=== PATIENT | female | born 1985 | race African-American/Black ===

== ENCOUNTER 2018-04-17 10:41 | Emergency (ER) | payer SELFPAY ==
[2018-04-17 10:50] VITALS: BP 116/70
--- NOTE | 2018-04-17 11:04 | ER Document Report ---
ED Medical Screen (RME) - General Chief Complaint: Lower Abdominal Pain Stated Complaint: PELVIC PAIN Time Seen by Provider: 04/17/18 11:01 Mode of Arrival: Ambulatory Information source: Patient Notes: 32-year-old female 2 para 2, history of endometriosis, last menstrual period March 20 (not entirely normal, episode of bleeding followed by spotting). Patient presents to the emergency room with right lower quadrant/right pelvic discomfort for the past few days. She has had some nausea without vomiting, diarrhea or constipation. She last ate this morning (only a small amount). She denies vaginal discharge. Past medical history, borderline diabetes No known disease Medicines: None Past surgical history: Laparoscopy in the past for similar pain TRAVEL OUTSIDE OF THE [place] IN LAST 30 DAYS: No - Related Data Allergies/Adverse Reactions: No Known Allergies Allergy (Verified 04/17/18 11:02) Past Medical History - Social History Chew tobacco use (# tins/day): No Frequency of alcohol use: None Drug Abuse: None Renal/ Medical History: Denies: Hx Peritoneal Dialysis Physical Exam - Vital signs Vitals: Temp Pulse Resp BP Pulse Ox 99.0 F 75 16 116/70 97 04/17/18 10:48 04/17/18 10:48 04/17/18 10:48 04/17/18 10:48 04/17/18 10:48 Course - Vital Signs Vital signs: Temp Pulse Resp BP Pulse Ox 99.0 F 75 16 116/70 97 04/17/18 10:48 04/17/18 10:48 04/17/18 10:48 04/17/18 10:48 04/17/18 10:48 Doctor's Discharge - Discharge Referrals: KD MURPHY PA [Primary Care Provider] - Follow up as needed
[2018-04-17 11:31] LABS: ABSOLUTE BASOPHILS # (AUTO) 0.1 10^3/uL (0.0-0.2); ABSOLUTE EOSINOPHILS # (AUTO) 0.2 10^3/uL (0.0-0.6); ABSOLUTE LYMPHOCYTES (AUTO) 3.5 10^3/uL (0.5-4.7); ABSOLUTE MONOCYTES (AUTO) 0.3 10^3/uL (0.1-1.4); ABSOLUTE NEUT (AUTO) 4.1 10^3/uL (1.7-8.2); BASOPHILS % (AUTO) 0.7 % (0-2); EOSINOPHILS % (AUTO) 2.7 % (0-6); HEMATOCRIT 39.9 % (36.0-47.0); HEMOGLOBIN 13.3 g/dL (12.0-15.5); LYMPHOCYTES % (AUTO) 43.1 % (13-45); MEAN CORPUSCULAR HEMOGLOBIN 27.3 pg (27.0-33.4); MEAN CORPUSCULAR HGB CONC 33.5 g/dL (32.0-36.0); MEAN CORPUSCULAR VOLUME 81 fl (80-97); MONOCYTES % (AUTO) 4.1 % (3-13); PLATELET COUNT 298 10^3/uL (150-450); RED CELL DISTRIBUTION WIDTH 14.7 % (11.5-14.0); SEGMENTED NEUTROPHILS % (AUTO) 49.4 % (42-78); TOTAL CELLS COUNTED % (AUTO) 100 %; WHITE BLOOD COUNT 8.2 10^3/uL (4.0-10.5)
[2018-04-17 11:42] LABS: APPEARANCE,URINE SLIGHTLY-CLOUDY; BILIRUBIN,URINE NEGATIVE (NEGATIVE); COLOR,URINE YELLOW; GLUCOSE, URINE NEGATIVE (NEGATIVE); KETONES,URINE NEGATIVE (NEGATIVE); LEUKOCYTE ESTERASE,URINE TRACE (NEGATIVE); NITRITE,URINE NEGATIVE (NEGATIVE); PROTEIN,URINE NEGATIVE (NEGATIVE); URINE SPECIFIC GRAVITY 1.027
[2018-04-17 11:52] LABS: ALANINE AMINOTRANSFERASE 25 U/L (9-52); ALBUMIN 4.4 g/dL (3.5-5.0); ALKALINE PHOSPHATASE 63 U/L (38-126); ANION GAP 12 (5-19); ASPARTATE AMINO TRANSFERASE 22 U/L (14-36); BILIRUBIN,DIRECT 0.3 mg/dL (0.0-0.4); BILIRUBIN,TOTAL 1.3 mg/dL (0.2-1.3); BLOOD UREA NITROGEN 8 mg/dL (7-20); CALCIUM 9.5 mg/dL (8.4-10.2); CARBON DIOXIDE 26 mmol/L (22-30); CHLORIDE 106 mmol/L (98-107); GLUCOSE 93 mg/dL (75-110); POTASSIUM 3.6 mmol/L (3.6-5.0); SODIUM 144.1 mmol/L (137-145); TOTAL PROTEIN 7.8 g/dL (6.3-8.2)
[2018-04-17] MEDS ORDERED: IBUPROFEN 600 MG TABLET PO ONE (12:52)
[2018-04-17] MEDS ORDERED: KETOROLAC TROMETHAMINE INJ/PF 30 MG/1 ML SDV IM ONE (12:53)
--- NOTE | 2018-04-17 13:00 | ER Document Report ---
ED GI/ - General Chief Complaint: Lower Abdominal Pain Stated Complaint: PELVIC PAIN Time Seen by Provider: 04/17/18 11:01 Mode of Arrival: Ambulatory Information source: Patient Notes: 32-year-old female presents to ED for complaint of right pelvic pain. She states she has a history of endometriosis. Last pins menstrual period was March 20. She has already had a test which is negative. Her white counts are negative and her chemistries are negative. TRAVEL OUTSIDE OF THE [place] IN LAST 30 DAYS: No - HPI Patient complains to provider of: Pelvic pain Onset: Other - Several months minimally Timing/Duration: Intermittent Quality of pain: Cramping, Sharp Severity at maximum: Moderate Severity in ED: Moderate Pain Level: 4 Location: Pelvis - right Vaginal bleeding (Compared to normal period): Spotting LMP: march 20 Associated symptoms: Other - right pelvic pain Exacerbated by: Denies Relieved by: Denies Similar symptoms previously: Yes Recently seen / treated by doctor: No - Related Data Allergies/Adverse Reactions: No Known Allergies Allergy (Verified 04/17/18 11:02) Past Medical History - General Information source: Patient - Social History Smoking Status: Never Smoker Cigarette use (# per day): No Chew tobacco use (# tins/day): No Smoking Education Provided: No Frequency of alcohol use: None Drug Abuse: None Family History: Reviewed & Not Pertinent Patient has suicidal ideation: No Patient has homicidal ideation: No - Past Medical History Cardiac Medical History: Reports: None Pulmonary Medical History: Reports: None EENT Medical History: Reports: None Neurological Medical History: Reports: None Endocrine Medical History: Reports: Hx Diabetes Mellitus Type 2 Renal/ Medical History: Reports: Other - endometriosis Malignancy Medical History: Reports: None GI Medical History: Reports: None Musculoskeletal Medical History: Reports None Skin Medical History: Reports None Psychiatric Medical History: Reports: None Traumatic Medical History: Reports: None Infectious Medical History: Reports: None Surgical Hx: Negative Past Surgical History: Reports: None - Immunizations Immunizations up to date: Yes Review of Systems - Review of Systems Constitutional: No symptoms reported EENT: No symptoms reported Cardiovascular: No symptoms reported Respiratory: No symptoms reported Gastrointestinal: No symptoms reported Genitourinary: No symptoms reported Female Genitourinary: Other - pelvic Musculoskeletal: No symptoms reported Skin: No symptoms reported Hematologic/Lymphatic: No symptoms reported Neurological/Psychological: No symptoms reported -: Yes All other systems reviewed and negative Physical Exam - Vital signs Vitals: Temp Pulse Resp BP Pulse Ox 99.0 F 75 16 116/70 97 04/17/18 10:48 04/17/18 10:48 04/17/18 10:48 04/17/18 10:48 04/17/18 10:48 Interpretation: Normal - General General appearance: Appears well, Alert - HEENT Head: Normocephalic, Atraumatic Eyes: Normal Pupils: PERRL - Respiratory Respiratory status: No respiratory distress Chest status: Nontender Breath sounds: Normal Chest palpation: Normal - Cardiovascular Rhythm: Regular Heart sounds: Normal auscultation Murmur: No - Abdominal Inspection: Normal Distension: No distension Bowel sounds: Normal Tenderness: Nontender Organomegaly: No organomegaly - Genitourinary External exam: Normal Speculum exam: Cervix closed Vaginal bleeding: None Bimanuel exam: Adnexal tenderness. No: Cervical motion tender, Bladder/ Urethral tender, Adnexal mass, Uterus enlarged - Back Back: Normal, Nontender - Extremities General upper extremity: Normal inspection, Nontender, Normal color, Normal ROM , Normal temperature General lower extremity: Normal inspection, Nontender, Normal color, Normal ROM , Normal temperature, Normal weight bearing. No: Kenzie's sign - Neurological Neuro grossly intact: Yes Cognition: Normal Orientation: AAOx4 [place] Coma Scale Eye Opening: Spontaneous [place] Coma Scale Verbal: Oriented [place] Coma Scale Motor: Obeys Commands [place] Coma Scale Total: 15 Speech: Normal Motor strength normal: LUE, RUE, LLE, RLE Sensory: Normal - Psychological Associated symptoms: Normal affect, Normal mood - Skin Skin Temperature: Warm Skin Moisture: Dry Skin Color: Normal Course - Re-evaluation Re-evalutation: 04/17/18 20:58 Labs and ultrasound discussed with patient. Written reports of labs and ultrasound given the patient to follow-up with her primary doctor. Patient was treated with Flagyl in the emergency room for her bacterial vaginosis and discharged home with a prescription for Flagyl. Patient verbalized understanding and agreement with treatment plan. - Vital Signs Vital signs: Temp Pulse Resp BP Pulse Ox 99.0 F 75 16 116/70 97 04/17/18 10:48 04/17/18 10:48 04/17/18 10:48 04/17/18 10:48 04/17/18 10:48 - Laboratory Result Diagrams: 04/17/18 11:10 04/17/18 11:10 Laboratory results interpreted by me: 04/17/18 04/17/18 11:10 11:15 RDW 14.7 H Urine Urobilinogen 2.0 H Ur Leukocyte Esterase TRACE H - Diagnostic Test Radiology reviewed: Image reviewed, Reports reviewed Discharge - Discharge Clinical Impression: Pelvic pain, Bacterial vaginosis Condition: Stable Disposition: HOME, SELF-CARE Additional Instructions: Pelvic Pain There are many causes of pain in the pelvic area. The cause could be the tubes, ovaries, uterus, intestines, appendix, pelvic muscles and connective tissue, or the urinary tract. The cause of your pelvic pain is not clear. However, it seems safe to treat you outside the hospital. If the pain sounds like a temporary problem, we sometimes wait to see if it goes away. Other patients may need additional tests, such as pelvic ultrasound or cultures. Conditions may change. Call us or come back for reexamination if any problems occur, such as: (1) Pain that becomes more severe, steady, or becomes concentrated in one specific area. Also, pain that is more severe with movement or coughing. (2) Vomiting that persists or becomes more frequent. (3) Blood in the vomitus, urine, or bowel movements. Blood in the stool may have a tarry or black appearance. (4) Shaking chills or fever greater than 100 degrees. (5) The abdomen becomes more distended or swollen. (6) Bowel movements cease. (7) Heavy vaginal bleeding. VAGINOSIS, BACTERIAL: Your exam shows you have bacterial vaginosis. This condition is due to an overgrowth of bacteria in the vagina. Symptoms may include vaginal itching or pain, a smelly discharge, and sometimes burning with urination. Normally this is not transmitted by sexual contact. Vaginosis can be treated with oral or topical antibiotics. Metronidazole ( Flagyl) pills are usually effective. Topical vaginal creams include Cleocin and Metro-Gel. You should avoid sexual contact until your symptoms are all better. Call the doctor if you develop pelvic pain, fever, or problems with urination, or if you don't improve as expected. METRONIDAZOLE: Metronidazole (Flagyl) has been prescribed. This medication is used to kill a type of bacteria called anaerobes, and protozoan parasites such as trichomonas and Giardia. Flagyl often causes a metallic taste in the mouth and mild nausea. Do not use alcohol in any form with Flagyl (including alcohol in medication elixirs). Flagyl interacts with alcohol to cause flushing, palpitations, headache, stomach cramps, and vomiting. Do not use Flagyl if you are taking Antabuse (disulfiram). Call the doctor at once if you develop rash, shortness of breath, itching, or lightheadedness. FOLLOW-UP CARE: If you have been referred to a physician for follow-up care, call the physician s office for an appointment as you were instructed or within the next two days. If you experience worsening or a significant change in your symptoms, notify the physician immediately or return to the Emergency Department at any time for re-evaluation. Prescriptions: Metronidazole [Flagyl 500 mg Tablet] 500 mg PO BID #14 tablet Forms: Return to Work Referrals: KD MURPHY PA [NO LOCAL MD] - Follow up as needed
[2018-04-17 13:38] LABS: YEAST (WET MOUNT) NO YEAST SEEN
[2018-04-17 13:39] LABS: BACTERIA (WET MOUNT) 4+ BACTERIA SEEN; EPITHELIALS (WET MOUNT) 4+ EPITHELIALS SEEN; RBCS (WET MOUNT) RARE RBCS SEEN; WBCS (WET MOUNT) 4+ WBCS SEEN
[2018-04-17 13:41] LABS: T.VAGINALIS (WET MOUNT) COULD NOT PERFORM
--- NOTE | 2018-04-17 13:46 | RADIOLOGY REPORT (SQ) ---
EXAM DESCRIPTION: U/S NON-OB PELVIS TV W/O DOP COMPLETED DATE/TIME: 04/17/2018 1:36 pm REASON FOR STUDY: right pelvic pain COMPARISON: None. TECHNIQUE: Dynamic and static grayscale images acquired of the pelvis via transvaginal approach and recorded on PACS. Additional selected color Doppler and spectral images recorded. LIMITATIONS: None. FINDINGS: UTERUS: Contour normal. No mass. ENDOMETRIAL STRIPE: No focal or generalized thickening. No masses. CERVIX: No nabothian cysts. RIGHT OVARY AND DOPPLER: Normal size. No worrisome masses. Normal arterial vascular flow without evid ence for torsion. LEFT OVARY AND DOPPLER: Normal size. No worrisome masses. Normal arterial vascular flow without evide nce for torsion. FREE FLUID: Tiny amount of free fluid is identified in the posterior cul-de-sac OTHER: No other significant finding. MEASUREMENTS: UTERUS: 8.4 x 6.2 x 3.1 cm ENDOMETRIAL STRIPE: 5.9 mm RIGHT OVARY: 2.8 x 2.5 x 3.2 cm LEFT OVARY: 2.5 x 1.9 x 2.1 cm IMPRESSION: No significant pelvic abnormalities were identified. Findings as noted above TECHNICAL DOCUMENTATION: JOB ID: [id number] [employer]- All Rights Reserved Rev Reading location - IP/workstation name: [email or web address]
[2018-04-17 15:00] LABS: CHLAM PCR NOT DETECTED (NOT DETECT); GON PCR NOT DETECTED (NOT DETECT)
[2018-04-17] MEDS ORDERED: METRONIDAZOLE 500 MG TABLET PO ONE (15:13)
== END 2018-04-17 15:50 | disposition home or self-care (01) ==
LOC: ER 10:41
DX: N76.0 Acute vaginitis (principal); B96.89 Other specified bacterial agents as the cause of diseases classified elsewhere; R10.30 Lower abdominal pain, unspecified; R10.2 Pelvic and perineal pain; E11.9 Type 2 diabetes mellitus without complications
CPT/HCPCS: 99284; 96372; 36415; 87210; 84702; 85025; 80053; 81001; 87491; 87591; 76830; J1885

== ENCOUNTER 2018-12-25 12:05 | Emergency (ER) | payer OTHER ==
--- NOTE | 2018-12-25 12:41 | ER Document Report ---
ED Medical Screen (RME) - General Chief Complaint: Vaginal Discharge Stated Complaint: VAGINAL DISCHARGE Time Seen by Provider: 12/25/18 12:37 Mode of Arrival: Ambulatory Notes: Patient presents emergency department with complaints of vaginal swelling with some white discharge since Monday. Patient reports it started after she utilized Preparation H. Denies other symptoms such as fever vomiting diarrhea. Reports history of pneumonia for which she was on antibiotics but she did not finish the antibiotics. She does not remember what she was taking. I have greeted and performed a rapid initial assessment of this patient. A comprehensive ED assessment and evaluation of the patient, analysis of test results and completion of the medical decision making process will be conducted by additional ED providers. TRAVEL OUTSIDE OF THE [place] IN LAST 30 DAYS: No - Related Data Allergies/Adverse Reactions: No Known Allergies Allergy (Verified 12/25/18 12:15) Past Medical History Endocrine Medical History: Reports: Hx Diabetes Mellitus Type 2 Renal/ Medical History: Denies: Hx Peritoneal Dialysis - Immunizations Immunizations up to date: Yes Physical Exam - Vital signs Vitals: Temp Pulse Resp BP Pulse Ox 98.4 F 72 16 109/64 100 12/25/18 12:27 12/25/18 12:27 12/25/18 12:27 12/25/18 12:27 12/25/18 12:27 Course - Vital Signs Vital signs: Temp Pulse Resp BP Pulse Ox 98.4 F 72 16 109/64 100 12/25/18 12:27 12/25/18 12:27 12/25/18 12:27 12/25/18 12:27 12/25/18 12:27
[2018-12-25 13:13] LABS: APPEARANCE,URINE CLOUDY; BILIRUBIN,URINE NEGATIVE (NEGATIVE); COLOR,URINE AMBER; GLUCOSE, URINE NEGATIVE (NEGATIVE); KETONES,URINE NEGATIVE (NEGATIVE); LEUKOCYTE ESTERASE,URINE LARGE (NEGATIVE); NITRITE,URINE NEGATIVE (NEGATIVE); PROTEIN,URINE 30 mg/dL (NEGATIVE); URINE SPECIFIC GRAVITY 1.028
[2018-12-25 15:49] LABS: BACTERIA (WET MOUNT) 4+ BACTERIA SEEN; EPITHELIALS (WET MOUNT) 4+ EPITHELIALS SEEN; T.VAGINALIS (WET MOUNT) NO TRICHOMONAS SEEN; WBCS (WET MOUNT) FEW WBCS SEEN; YEAST (WET MOUNT) YEAST SEEN
[2018-12-25] MEDS ORDERED: FLUCONAZOLE 100 MG TABLET PO ONE (16:19)
[2018-12-25] MEDS ORDERED: CEFTRIAXONE INJ 250 MG VIAL IM ONE (16:19)
[2018-12-25] MEDS ORDERED: AZITHROMYCIN 250 MG TABLET PO ONE (16:19)
--- NOTE | 2018-12-25 16:28 | ER Document Report ---
ED General - General Chief Complaint: Vaginal Discharge Stated Complaint: VAGINAL DISCHARGE Time Seen by Provider: 12/25/18 12:37 Primary Care Provider: OSMAN SHORE [Primary Care Provider] - Follow up as needed Mode of Arrival: Ambulatory Notes: Patient is a 33-year-old female presents to the emergency department for vaginal swelling and discharge. Patient states she recently finished a course of antibiotics for pneumonia. States she has noted some itching, swelling to her vaginal area over the last couple of days. Patient denies using any [id number] treatments. Patient does admit to multiple partners with unprotected sex. Patient's denying any abdominal pain, vomiting, fevers. Past medical history: Diabetes Medications: Metformin Allergies: None TRAVEL OUTSIDE OF THE [place] IN LAST 30 DAYS: No - Related Data Allergies/Adverse Reactions: No Known Allergies Allergy (Verified 12/25/18 12:15) Past Medical History - General Information source: Patient - Social History Smoking Status: Former Smoker Family History: Reviewed & Not Pertinent Patient has suicidal ideation: No Patient has homicidal ideation: No Endocrine Medical History: Reports: Hx Diabetes Mellitus Type 2 Renal/ Medical History: Denies: Hx Peritoneal Dialysis - Immunizations Immunizations up to date: Yes Review of Systems - Review of Systems Constitutional: See HPI EENT: No symptoms reported Cardiovascular: No symptoms reported Respiratory: No symptoms reported Gastrointestinal: See HPI Genitourinary: See HPI Female Genitourinary: See HPI Musculoskeletal: No symptoms reported Skin: No symptoms reported Hematologic/Lymphatic: No symptoms reported Neurological/Psychological: No symptoms reported Physical Exam - Vital signs Vitals: Temp Pulse Resp BP Pulse Ox 98.4 F 72 16 109/64 100 12/25/18 12:27 12/25/18 12:27 12/25/18 12:27 12/25/18 12:27 12/25/18 12:27 - Notes Notes: GENERAL: Alert, interacts well. No acute distress. HEAD: Normocephalic, atraumatic. EYES: Pupils equal, round, and reactive to light. Extraocular movements intact. ENT: Oral mucosa moist, tongue midline. NECK: Full range of motion. Supple. Trachea midline. LUNGS: Clear to auscultation bilaterally, no wheezes, rales, or rhonchi. No respiratory distress. HEART: Regular rate and rhythm. No murmur ABDOMEN: Soft, non-tender. Non-distended. Bowel sounds present in all 4 quadrants. EXTREMITIES: Moves all 4 extremities spontaneously. No edema, normal radial and dorsalis pedis pulses bilaterally. No cyanosis. BACK: no cervical, thoracic, lumbar midline tenderness. No saddle anesthesia, normal distal neurovascular exam. NEUROLOGICAL: Alert and oriented x3. Normal speech. cranial nerves II through XII grossly intact PSYCH: Normal affect, normal mood. SKIN: Warm, dry, normal turgor. No rashes or lesions noted. Pelvic: [employer] Cathleen PCT, thick white discharge noted in cul-de-sac, positive cervical motion tenderness noted, negative bilateral adnexal tenderness noted. Course - Re-evaluation Re-evalutation: 12/25/18 16:31 Patient's urine appears to be a dirty catch, 45 squamous cells noted. UTI sent for culture. Patient's denying dysuria. Patient's wet mount shows 4+ bacteria, few WBCs, plus yeast. Patient's gonorrhea and Chlamydia testing is pending. Due to patient's wet mount results and cervical motion tenderness will treat for PID. Patient continues without any abdominal pain or cramping. Patient is hemodynamically stable, stable for discharge. - Vital Signs Vital signs: Temp Pulse Resp BP Pulse Ox 98.4 F 72 16 109/64 100 12/25/18 12:27 12/25/18 12:27 12/25/18 12:27 12/25/18 12:27 12/25/18 12:27 - Laboratory Laboratory results interpreted by me: 12/25/18 12:44 Urine Protein 30 H Urine Urobilinogen 2.0 H Ur Leukocyte Esterase LARGE H Discharge - Discharge Clinical Impression: Pelvic inflammatory disease, Yeast vaginitis Condition: Stable Disposition: HOME, SELF-CARE Instructions: Pelvic Inflammatory Disease ([facility]), Vaginal Yeast Infection ([facility]) Additional Instructions: As we have discussed you have been seen and treated in the emergency department for pelvic inflammatory disease. Please take antibiotics for the full 14-day course. Also as we discussed you have been seen for yeast vaginitis. Please make sure you take one Diflucan pill on day 7 of your antibiotic course and then another Diflucan pill on day 14 of your antibiotic course. Please also make sure you follow-up with your primary care provider for continued care. Please return to the emergency room should you have any other concerning symptoms. Prescriptions: Doxycycline Hyclate 100 mg PO BID 14 Days capsule Fluconazole [Diflucan] 150 mg PO ONCE PRN #2 tablet PRN Reason: Metronidazole [Flagyl 500 mg Tablet] 500 mg PO BID 14 Days tablet Forms: Return to Work Referrals: [facility] [Primary Care Provider] - Follow up as needed [facility] [Provider Group] - Follow up as needed
[2018-12-25] MEDS ORDERED: LIDOCAINE 1% INJ-PF (10 MG/ML) 30 ML SDV ONE (16:32)
[2018-12-25 17:08] LABS: CHLAM PCR NOT DETECTED (NOT DETECT); GON PCR NOT DETECTED (NOT DETECT)
[2018-12-25 17:28] VITALS: BP 112/71
== END 2018-12-25 17:31 | disposition home or self-care (01) ==
LOC: ER 12:05
DX: N73.9 Female pelvic inflammatory disease, unspecified (principal); B37.3 Candidiasis of vulva and vagina; E11.9 Type 2 diabetes mellitus without complications
CPT/HCPCS: 99283; 96372; 87086; 87210; 81025; 87088; 81001; 87491; 87591; J3490; J0696

== ENCOUNTER 2019-03-11 17:48 | Emergency (ER) | payer OTHER ==
[2019-03-11] MEDS ORDERED: NORMAL SALINE 1000 ML 1,000 ML IV ONE (18:06)
[2019-03-11] MEDS ORDERED: ONDANSETRON HCL INJ/PF 4 MG/2 ML SDV IV ONE (18:06)
[2019-03-11] MEDS ORDERED: KETOROLAC TROMETHAMINE INJ/PF 30 MG/1 ML SDV IV ONE (18:06)
[2019-03-11] MEDS ORDERED: MORPHINE SULFATE 10 MG/ML INJ IV ONE (18:06)
--- NOTE | 2019-03-11 18:11 | ER Document Report ---
ED Medical Screen (RME) - General Chief Complaint: Abdominal Pain Stated Complaint: RIGHT LOWER ABDOMINAL PAIN Time Seen by Provider: 03/11/19 18:02 TRAVEL OUTSIDE OF THE [place] IN LAST 30 DAYS: No - HPI Notes: 03/11/19 18:09 Patient is a 33-year-old female no significant past medical history who presents complaining of sudden onset right flank pain that radiates around into her abdomen with associated nausea and vomiting that began prior to arrival. Her pain has been waxing and waning in intensity. Patient states that she has not had pain like this before. Denies OJEDA, fever, neck pain, URI, CP, SOB, dysuria, or rash. I have treated and performed a rapid initial assessment of this patient. A comprehensive ED assessment and evaluation of the patient, analysis of test results and completion of medical decision making process will be conducted by additional ED providers. PHYSICAL EXAMINATION: GENERAL: no acute resp distress. A&Ox4. Answers questions appropriately. LUNGS: Breath sounds clear to auscultation bilaterally and equal. No wheezes rales or rhonchi. HEART: Regular rate and rhythm without murmurs, rubs, gallops. ABDOMEN: Soft, nondistended abdomen. No guarding, no rebound. Normal bowel sounds present. No CVA tenderness bilaterally. + mild Rt abd tenderness (cannot elicit thorough abd exam w/o bed, however). - Related Data Allergies/Adverse Reactions: No Known Allergies Allergy (Verified 12/25/18 12:15) Past Medical History - Social History Frequency of alcohol use: None Drug Abuse: None Endocrine Medical History: Reports: Hx Diabetes Mellitus Type 2 Renal/ Medical History: Denies: Hx Peritoneal Dialysis - Immunizations Immunizations up to date: Yes Physical Exam - Vital signs Vitals: Temp Pulse Resp BP Pulse Ox 99.4 F 88 18 127/104 H 100 03/11/19 17:54 03/11/19 17:54 03/11/19 17:54 03/11/19 17:54 03/11/19 17:54 Course - Vital Signs Vital signs: Temp Pulse Resp BP Pulse Ox 99.4 F 88 18 127/104 H 100 03/11/19 17:54 03/11/19 17:54 03/11/19 17:54 03/11/19 17:54 03/11/19 17:54
[2019-03-11 18:57] LABS: ABSOLUTE BASOPHILS # (AUTO) 0.1 10^3/uL (0.0-0.2); ABSOLUTE EOSINOPHILS # (AUTO) 0.5 10^3/uL (0.0-0.6); ABSOLUTE LYMPHOCYTES (AUTO) 3.9 10^3/uL (0.5-4.7); ABSOLUTE MONOCYTES (AUTO) 0.5 10^3/uL (0.1-1.4); ABSOLUTE NEUT (AUTO) 5.5 10^3/uL (1.7-8.2); BASOPHILS % (AUTO) 0.8 % (0-2); EOSINOPHILS % (AUTO) 4.9 % (0-6); HEMATOCRIT 39.6 % (36.0-47.0); HEMOGLOBIN 13.4 g/dL (12.0-15.5); MEAN CORPUSCULAR HEMOGLOBIN 28.5 pg (27.0-33.4); MEAN CORPUSCULAR HGB CONC 33.8 g/dL (32.0-36.0); MEAN CORPUSCULAR VOLUME 85 fl (80-97); MONOCYTES % (AUTO) 4.7 % (3-13); PLATELET COUNT 303 10^3/uL (150-450); RED BLOOD COUNT 4.69 10^6/uL (3.72-5.28); RED CELL DISTRIBUTION WIDTH 14.1 % (11.5-14.0); SEGMENTED NEUTROPHILS % (AUTO) 52.6 % (42-78); TOTAL CELLS COUNTED % (AUTO) 100 %; WHITE BLOOD COUNT 10.5 10^3/uL (4.0-10.5)
[2019-03-11 19:07] LABS: APPEARANCE,URINE CLEAR; BILIRUBIN,URINE NEGATIVE (NEGATIVE); COLOR,URINE YELLOW; GLUCOSE, URINE NEGATIVE (NEGATIVE); KETONES,URINE NEGATIVE (NEGATIVE); LEUKOCYTE ESTERASE,URINE NEGATIVE (NEGATIVE); NITRITE,URINE NEGATIVE (NEGATIVE); PROTEIN,URINE 30 mg/dL (NEGATIVE); UROBILINOGEN,URINE NEGATIVE mg/dL (<2.0)
[2019-03-11 19:17] LABS: ALANINE AMINOTRANSFERASE 19 U/L (9-52); ALBUMIN 4.2 g/dL (3.5-5.0); ALKALINE PHOSPHATASE 70 U/L (38-126); ANION GAP 8 (5-19); ASPARTATE AMINO TRANSFERASE 24 U/L (14-36); BILIRUBIN,DIRECT 0.2 mg/dL (0.0-0.4); BILIRUBIN,TOTAL 0.4 mg/dL (0.2-1.3); BLOOD UREA NITROGEN 14 mg/dL (7-20); CALCIUM 9.4 mg/dL (8.4-10.2); CARBON DIOXIDE 21 mmol/L (22-30); CHLORIDE 107 mmol/L (98-107); GLUCOSE 96 mg/dL (75-110); LIPASE 107.5 U/L (23-300); POTASSIUM 4.7 mmol/L (3.6-5.0); SODIUM 136.2 mmol/L (137-145); TOTAL PROTEIN 7.4 g/dL (6.3-8.2)
--- NOTE | 2019-03-11 19:57 | ER Document Report ---
ED General - General Chief Complaint: Abdominal Pain Stated Complaint: RIGHT LOWER ABDOMINAL PAIN Time Seen by Provider: 03/11/19 18:02 Primary Care Provider: [facility] [Provider Group] - Follow up in 3-5 days [facility] [Primary Care Provider] - Follow up in 3-5 days Notes: Patient is a 33 year old female that presents to the emergency department for chief complaint of abdominal pain. Patient states she started having right back pain while she was working out at the gym, and developed nausea and had one episode of vomiting. The pain then started to wrap around towards her right lower quadrant and pelvis so she decided come to the emergency department. She states her pain is much improved since being treated in triage, describes it as a mild ache, and a 2 out of 10 at this time. She denies any abnormal vaginal bleeding or discharge, denies having any dysuria, hematuria, diarrhea, constipa tion chest pain or shortness of breath. Denies any recent fevers, chills or night sweats. She denies any numbness, weakness or tingling in her extremities as well. Past Medical History: Denies chronic medical conditions Past Surgical History: Laparoscopy Social History: Denies tobacco, alcohol or drug use. Family History: Reviewed and noncontributory for presenting illness Allergies: Reviewed, see documented allergy list. REVIEW OF SYSTEMS: Other than noted above, the 12 point review of systems was reviewed with the patient and were negative, all pertinent findings are included in the HPI. PHYSICAL EXAMINATION: Vital signs reviewed, nursing noted reviewed. GENERAL: Well-appearing, well-nourished and in no acute distress. HEAD: Atraumatic, normocephalic. EYES: Eyes appear normal, extraocular movements intact, sclera anicteric, conjunctiva are normal. ENT: nares patent, oropharynx clear without exudates. Moist mucous membranes. NECK: Normal range of motion, supple without lymphadenopathy LUNGS: Breath sounds clear to auscultation bilaterally and equal. No wheezes rales or rhonchi. HEART: Regular rate and rhythm without murmurs ABDOMEN: Soft, mild right-sided abdominal pain with palpation, mainly lower, normoactive bowel sounds. No rebound, guarding, or rigidity. No masses appreciated. EXTREMITIES: Nontender, good range of motion, no pitting or edema. NEUROLOGICAL: No focal neurological deficits. Moves all extremities spontaneously Motor and sensory grossly intact on exam. PSYCH: Normal mood, normal affect. SKIN: Warm, Dry, normal turgor, no rashes or lesions noted on exposed skin TRAVEL OUTSIDE OF THE [place] IN LAST 30 DAYS: No - Related Data Allergies/Adverse Reactions: No Known Allergies Allergy (Verified 12/25/18 12:15) Past Medical History - Social History Smoking Status: Unknown if Ever Smoked Frequency of alcohol use: None Drug Abuse: None Family History: Reviewed & Not Pertinent Patient has suicidal ideation: No Patient has homicidal ideation: No Endocrine Medical History: Reports: Hx Diabetes Mellitus Type 2 Renal/ Medical History: Denies: Hx Peritoneal Dialysis - Immunizations Immunizations up to date: Yes Physical Exam - Vital signs Vitals: Temp Pulse Resp BP Pulse Ox 99.4 F 88 18 127/104 H 100 03/11/19 17:54 03/11/19 17:54 03/11/19 17:54 03/11/19 17:54 03/11/19 17:54 Course - Re-evaluation Re-evalutation: Patient seen and examined vital signs reviewed. Laboratory data and/or imaging were ordered as appropriate for the patient's presenting symptoms and complaint, with consideration of any critical or life threatening conditions that may be associated with their obtained history and exam as noted above. Patient was treated with IV fluids, pain medication, and Zofran for nausea Results were reviewed when available and demonstrated unremarkable work-up including negative CT imaging for acute findings, upon my review it did appear to be a right-sided ovarian cyst, which potentially could be causing some of the patient's pain, versus muscle skeletal injury while the patient was working out. Her blood work was otherwise unremarkable The patient was re-evaluated and was improved, pain seemed to be more controlled Evaluation was most consistent with abdominal pain, nonspecific, possible ovarian cyst causing the nature of her pain, patient states she had a prior history of possible endometriosis, but was not sure of the diagnosis, she is advised to follow-up with [facility]. Results were discussed with the patient at this point, after careful consideration I feel that that patient can be discharged from the emergency department, the patient was educated treatments and reasons to return to the emergency department based on their presumed diagnosis as noted above, they were advised to followup with a primary care physician in 2-3 days. Patient was agreeable to plan of care. *Note is created using voice recognition software and may contain spelling, syntax or grammatical errors. Laboratory 03/11/19 03/11/19 03/11/19 18:45 18:45 18:45 WBC 10.5 RBC 4.69 Hgb 13.4 Hct 39.6 MCV 85 MCH 28.5 MCHC 33.8 RDW 14.1 H Plt Count 303 Seg Neutrophils % 52.6 Lymphocytes % 37.0 Monocytes % 4.7 Eosinophils % 4.9 Basophils % 0.8 Absolute Neutrophils 5.5 Absolute Lymphocytes 3.9 Absolute Monocytes 0.5 Absolute Eosinophils 0.5 Absolute Basophils 0.1 Sodium 136.2 L Potassium 4.7 Chloride 107 Carbon Dioxide 21 L Anion Gap 8 BUN 14 Creatinine 0.54 Est GFR ( Amer) > 60 Est GFR (Non-Af Amer) > 60 Glucose 96 Calcium 9.4 Total Bilirubin 0.4 Direct Bilirubin 0.2 Neonat Total Bilirubin Not Reportable Neonat Direct Bilirubin Not Reportable Neonat Indirect Bili Not Reportable AST 24 ALT 19 Alkaline Phosphatase 70 Total Protein 7.4 Albumin 4.2 Lipase 107.5 Urine Color YELLOW Urine Appearance CLEAR Urine pH 8.0 Ur Specific [place] 1.030 Urine Protein 30 H Urine Glucose (UA) NEGATIVE Urine Ketones NEGATIVE Urine Blood NEGATIVE Urine Nitrite NEGATIVE Urine Bilirubin NEGATIVE Urine Urobilinogen NEGATIVE Ur Leukocyte Esterase NEGATIVE Urine WBC (Auto) 1 Urine RBC (Auto) 1 Squamous Epi Cells Auto 2 Urine Mucus (Auto) FEW Urine Ascorbic Acid 40 H Urine HCG, Qual NEGATIVE Abdomen/Pelvis CT 03/11/19 18:06 IMPRESSION: No acute intra-abdominal abnormality. - Vital Signs Vital signs: Temp Pulse Resp BP Pulse Ox 97.6 F 61 18 103/64 98 03/11/19 21:38 03/11/19 21:38 03/11/19 17:54 03/11/19 21:38 03/11/19 21:38 - Laboratory Result Diagrams: 03/11/19 18:45 03/11/19 18:45 Laboratory results interpreted by me: 03/11/19 03/11/19 03/11/19 18:45 18:45 18:45 RDW 14.1 H Sodium 136.2 L Carbon Dioxide 21 L Urine Protein 30 H Urine Ascorbic Acid 40 H Discharge - Discharge Clinical Impression: Pelvic pain Ovarian cyst Qualifiers: Laterality: right Qualified Code(s): N83.201 - Unspecified ovarian cyst, right side Condition: Stable Disposition: HOME, SELF-CARE Instructions: Abdominal Pain ([facility]) Additional Instructions: Please take the prescribed antiinflammatory medication to help with pain and follow-up with [facility]. Prescriptions: RX: Naproxen [Naprosyn] 500 mg PO BID PRN #30 tablet PRN Reason: general pain [facility]errals: [facility] [Primary [facility]] - Follow up in 3-5 days [facility] [Provider Group] - Follow up in 3-5 days
--- NOTE | 2019-03-11 21:04 | RADIOLOGY REPORT (SQ) ---
EXAM DESCRIPTION: CT ABDOMEN PELVIS WITHOUT IV CONTRAST COMPLETED DATE/TME: 03/11/2019 18:06 CLINICAL HISTORY: Rt flank pain COMPARISON: None Available TECHNIQUE: Contiguous axial images of the abdomen and pelvis were obtained followed by reconstruction images. This exam was performed according to our departmental dose-optimization program, which includes automated exposure control, adjustment of the mA and/or kV according to patient size and/or use of iterative reconstruction technique. FINDINGS: The liver, spleen, pancreas and kidneys are within normal limits. There is no hydronephrosis or renal stones. The gallbladder is unremarkable by CT criteria. Adrenal glands are within normal limits. Aorta is of normal caliber and tapering. There is no free fluid in the abdomen or pelvis. There is no bowel obstruction. There is no stranding of the mesenteric fat to suggest an inflammatory response. The appendix is within normal limits. There is no pericecal inflammation. There are scattered diverticuli without CT evidence of acute diverticulitis. IMPRESSION: No acute intra-abdominal abnormality.
[2019-03-11] MEDS ORDERED: OXYCODONE-ACETAMINOPHEN 5-325 MG TABLET PO ONE (21:32)
[2019-03-11 21:47] VITALS: BP 103/64
== END 2019-03-11 21:47 | disposition home or self-care (01) ==
LOC: ER 17:48
DX: N83.201 Unspecified ovarian cyst, right side (principal); R10.31 Right lower quadrant pain; E11.9 Type 2 diabetes mellitus without complications
CPT/HCPCS: 99284; 96361; 96374; 96375; 36415; 83690; 85025; 81025; 80053; 81001; 74176; J1885; J2270; J2405; J7030

== ENCOUNTER 2019-04-13 14:58 | Emergency (ER) | payer OTHER ==
[2019-04-13] MEDS ORDERED: NORMAL SALINE 1000 ML 1,000 ML IV ONE (15:44)
[2019-04-13] MEDS ORDERED: ONDANSETRON HCL INJ/PF 4 MG/2 ML SDV IV ONE (15:45)
[2019-04-13] MEDS ORDERED: MORPHINE SULFATE 10 MG/ML INJ IV ONE (15:45)
[2019-04-13 16:10] LABS: ABSOLUTE BASOPHILS # (AUTO) 0.1 10^3/uL (0.0-0.2); ABSOLUTE EOSINOPHILS # (AUTO) 0.7 10^3/uL (0.0-0.6); ABSOLUTE LYMPHOCYTES (AUTO) 4.6 10^3/uL (0.5-4.7); ABSOLUTE MONOCYTES (AUTO) 0.4 10^3/uL (0.1-1.4); ABSOLUTE NEUT (AUTO) 3.4 10^3/uL (1.7-8.2); EOSINOPHILS % (AUTO) 7.7 % (0-6); HEMATOCRIT 42.4 % (36.0-47.0); LYMPHOCYTES % (AUTO) 49.8 % (13-45); MEAN CORPUSCULAR HEMOGLOBIN 27.8 pg (27.0-33.4); MEAN CORPUSCULAR HGB CONC 33.1 g/dL (32.0-36.0); MEAN CORPUSCULAR VOLUME 84 fl (80-97); MONOCYTES % (AUTO) 4.3 % (3-13); PLATELET COUNT 314 10^3/uL (150-450); RED BLOOD COUNT 5.03 10^6/uL (3.72-5.28); RED CELL DISTRIBUTION WIDTH 13.5 % (11.5-14.0); SEGMENTED NEUTROPHILS % (AUTO) 37.2 % (42-78); TOTAL CELLS COUNTED % (AUTO) 100 %; WHITE BLOOD COUNT 9.2 10^3/uL (4.0-10.5)
[2019-04-13 16:31] LABS: ALANINE AMINOTRANSFERASE 19 U/L (9-52); ALBUMIN 4.2 g/dL (3.5-5.0); ALKALINE PHOSPHATASE 60 U/L (38-126); ANION GAP 7 (5-19); ASPARTATE AMINO TRANSFERASE 21 U/L (14-36); BILIRUBIN,DIRECT 0.2 mg/dL (0.0-0.4); BILIRUBIN,TOTAL 0.5 mg/dL (0.2-1.3); BLOOD UREA NITROGEN 10 mg/dL (7-20); CARBON DIOXIDE 25 mmol/L (22-30); CHLORIDE 107 mmol/L (98-107); GLUCOSE 88 mg/dL (75-110); POTASSIUM 4.8 mmol/L (3.6-5.0); TOTAL PROTEIN 7.4 g/dL (6.3-8.2)
--- NOTE | 2019-04-13 17:26 | RADIOLOGY REPORT (SQ) ---
EXAM DESCRIPTION: U/S NON OB PEL TV W/DOPPLER COMPLETED DATE/TIME: 04/13/2019 5:15 pm REASON FOR STUDY: right pelvic pain COMPARISON: 04/17/2018 TECHNIQUE: Dynamic and static grayscale images acquired of the pelvis via transvaginal approach and recorded on PACS. Additional selected color Doppler and spectral images recorded. LIMITATIONS: None. FINDINGS: UTERUS: Contour normal. No mass. ENDOMETRIAL STRIPE: No focal or generalized thickening. No masses. CERVIX: No nabothian cysts. RIGHT OVARY AND DOPPLER: Normal size. No worrisome masses. Normal arterial vascular flow without evid ence for torsion. LEFT OVARY AND DOPPLER: Normal size. No worrisome masses. Normal arterial vascular flow without evide nce for torsion. FREE FLUID: None noted. OTHER: No other significant finding. MEASUREMENTS: UTERUS: 8.7 x 3.7 x 5.0 cm ENDOMETRIAL STRIPE: 0.5 cm RIGHT OVARY: 2.3 x 2.6 x 2.6 cm LEFT OVARY: 3.2 x 2.3 x 1.9 cm IMPRESSION: NORMAL TRANSVAGINAL PELVIC ULTRASOUND. TECHNICAL DOCUMENTATION: JOB ID: [id number]- All Rights Reserved Rev-02/02 Reading location - IP/workstation name: [email or web address]
[2019-04-13] MEDS ORDERED: KETOROLAC TROMETHAMINE INJ/PF 30 MG/1 ML SDV IV ONE (18:08)
--- NOTE | 2019-04-13 18:51 | ER Document Report ---
ED General - General Chief Complaint: Abdominal Pain Stated Complaint: ABDOMINAL PAIN Time Seen by Provider: 04/13/19 15:37 Primary Care Provider: [facility] [Primary Care Provider] - Follow up in 3-5 days Notes: Patient is a 33-year-old female that presents to the emergency department for chief complaint of abdominal pain and pelvic pain. Patient states she is been having sharp abdominal pain that got progressively worse today, but is been going on for a few months now, and waxes and wanes, she was seen about a month ago in the ED for the same pain, just came back and more intensity over the past 24 hours. She describes as a sharp aching pain in the left side of her abdomen, into the flank, as well as into the low pelvis. She denies having any diarrhea, but has had some nausea and vomiting. She thinks she may have been diagnosed with endometriosis in the past she had laparoscopy, but is not currently on any treatment, and she is not entirely sure she actually has it. She has not had a period in about 4 months, she is not sure she is . She denies having any fevers, chills, night sweats, chest pain, shortness of breath, difficulty breathing, dysuria or hematuria. She currently rates her pain as a 9 out of 10 describes it as constant and stabbing in nature. Past Medical History: Possibility of endometriosis Past Surgical History: Laparoscopy Social History: Denies current tobacco, alcohol or illicit drug use. Family History: Reviewed and noncontributory for presenting illness Allergies: Reviewed, see documented allergy list. REVIEW OF SYSTEMS: Other than noted above, the 12 point review of systems was reviewed with the patient and were negative, all pertinent findings are included in the HPI. PHYSICAL EXAMINATION: Vital signs reviewed, nursing noted reviewed. GENERAL: Patient appears uncomfortable and in pain HEAD: Atraumatic, normocephalic. EYES: Eyes appear normal, extraocular movements intact, sclera anicteric, conjunctiva are normal. ENT: nares patent, oropharynx clear without exudates. Moist mucous membranes. NECK: Normal range of motion, supple without lymphadenopathy LUNGS: Breath sounds clear to auscultation bilaterally and equal. No wheezes rales or rhonchi. HEART: Regular rate and rhythm without murmurs ABDOMEN: Soft, left-sided abdominal tenderness to palpation, left CVA tenderness, normoactive bowel sounds. No rebound, guarding, or rigidity. No masses appreciated. EXTREMITIES: Nontender, good range of motion, no pitting or edema. NEUROLOGICAL: No focal neurological deficits. Moves all extremities spontaneously Motor and sensory grossly intact on exam. PSYCH: Normal mood, normal affect. SKIN: Warm, Dry, normal turgor, no rashes or lesions noted on exposed skin TRAVEL OUTSIDE OF THE [place] IN LAST 30 DAYS: No - Related Data Allergies/Adverse Reactions: No Known Allergies Allergy (Verified 04/13/19 15:01) Past Medical History - Social History Smoking Status: Former Smoker Chew tobacco use (# tins/day): No Frequency of alcohol use: None Drug Abuse: None Family History: Reviewed & Not Pertinent Patient has suicidal ideation: No Patient has homicidal ideation: No Endocrine Medical History: Reports: Hx Diabetes Mellitus Type 2 Renal/ Medical History: Denies: Hx Peritoneal Dialysis - Immunizations Immunizations up to date: Yes Physical Exam - Vital signs Vitals: Temp Pulse Resp BP Pulse Ox 98.1 F 86 22 H 111/80 99 04/13/19 15:17 04/13/19 15:17 04/13/19 15:17 04/13/19 15:17 04/13/19 15:17 Course - Re-evaluation Re-evalutation: Patient seen and examined vital signs reviewed. Laboratory data and/or imaging were ordered as appropriate for the patient's presenting symptoms and complaint, with consideration of any critical or life threatening conditions that may be associated with their obtained history and exam as noted above. Patient was treated with IV fluid, morphine, Zofran, and Toradol after negative hCG Results were reviewed when available and demonstrated unremarkable blood work, negative transvaginal ultrasound The patient was re-evaluated and was stable, and improved, patient's pattern of pain, seems most consistent with endometriosis, she was here about a month ago and I did see her at that time as well, she had a similar pain complaints, at that time milk that she may have had an ovarian cyst on her CT, but was otherwise unremarkable work-up, now that her pain is back again a month later, it is more convincing of endometriosis and I [facility], she has an upcoming appointment on Monday of this week, patient was agr eeable to plan of care, did take anti-inflammatories given prescription for naproxen as well as [place] to take for breakthrough pain and to follow-up. Evaluation was most consistent with pelvic pain, suspect endometriosis Results were discussed with the patient at this point, after careful consider ation I feel that that patient can be discharged from the emergency department, the patient was educated treatments and reasons to return to the emergency department based on their presumed diagnosis as noted above, they were advised to followup with a primary care physician in 2-3 days. Patient was agreeable to plan of care. *Note is created using voice recognition software and may contain spelling, syntax or grammatical errors. Laboratory 04/13/19 04/13/19 04/13/19 16:00 16:00 16:00 WBC 9.2 RBC 5.03 Hgb 14.0 Hct 42.4 MCV 84 MCH 27.8 MCHC 33.1 RDW 13.5 Plt Count 314 Seg Neutrophils % 37.2 L Lymphocytes % 49.8 H Monocytes % 4.3 Eosinophils % 7.7 H Basophils % 1.0 Absolute Neutrophils 3.4 Absolute Lymphocytes 4.6 Absolute Monocytes 0.4 Absolute Eosinophils 0.7 H Absolute Basophils 0.1 Sodium 138.6 Potassium 4.8 Chloride 107 Carbon Dioxide 25 Anion Gap 7 BUN 10 Creatinine 0.63 Est GFR ( Amer) > 60 Est GFR (Non-Af Amer) > 60 Glucose 88 Calcium 10.0 Total Bilirubin 0.5 Direct Bilirubin 0.2 Neonat Total Bilirubin Not Reportable Neonat Direct Bilirubin Not Reportable Neonat Indirect Bili Not Reportable AST 21 ALT 19 Alkaline Phosphatase 60 Total Protein 7.4 Albumin 4.2 Lipase 112.8 Serum HCG, Qual NEGATIVE Transvaginal US 04/13/19 15:46 IMPRESSION: NORMAL TRANSVAGINAL PELVIC ULTRASOUND. - Vital Signs Vital signs: Temp Pulse Resp BP Pulse Ox 98.1 F 86 22 H 111/80 99 04/13/19 15:17 04/13/19 15:17 04/13/19 15:17 04/13/19 15:17 04/13/19 15:17 - Laboratory Result Diagrams: 04/13/19 16:00 04/13/19 16:00 Laboratory results interpreted by me: 04/13/19 16:00 Seg Neutrophils % 37.2 L Lymphocytes % 49.8 H Eosinophils % 7.7 H Absolute Eosinophils 0.7 H Discharge - Discharge Clinical Impression: Pelvic pain Condition: Stable Disposition: HOME, SELF-CARE Instructions: Endometriosis ([facility]) Additional Instructions: Your pattern of pain, seems to be consistent with endometriosis, as it seems to flare every month, and you have been having infrequent periods, which are common symptoms of endometriosis, this is a difficult condition to formally diagnose, and you may need a laparoscopy to have that done, I [facility], to be referred to a riveter hand to discuss possible treatments, and further evaluation. You have been prescribed anti-inflammatories and the pain medication today to take if needed for pain. Prescriptions: Hydrocodone/Acetaminophen [[place] 5-325 mg Tablet] 1 tab PO Q6H PRN #12 tablet PRN Reason: abdominal pain Naproxen 500 mg PO BID PRN #30 tablet.dr THOMPSON Reason: abdominal pain Referrals: [facility] [[facility]] - Follow up in 3-5 days
[2019-04-13 19:07] VITALS: BP 99/56
== END 2019-04-13 19:27 | disposition home or self-care (01) ==
LOC: ER 14:58
DX: R10.2 Pelvic and perineal pain (principal); R10.9 Unspecified abdominal pain; R11.2 Nausea with vomiting, unspecified; E11.9 Type 2 diabetes mellitus without complications; Z87.891 Personal history of nicotine dependence
CPT/HCPCS: 99284; 96361; 96374; 96375; 36415; 83690; 84703; 85025; 80053; 76830; 93976; J1885; J2270; J2405; J7030

== ENCOUNTER 2019-04-21 09:46 | Emergency (ER) | payer OTHER ==
[2019-04-21] MEDS ORDERED: IPRATROPIUM/ALBUTEROL 0.5-2.5 MG/3 ML AMPUL NEB ONE ×2 (10:08→11:02)
[2019-04-21] MEDS ORDERED: PREDNISONE 20 MG TABLET PO ONE (10:13)
--- NOTE | 2019-04-21 10:13 | ER Document Report ---
ED Medical Screen (RME) - General Chief Complaint: Breathing Difficulty Stated Complaint: CHEST CONGESTION Time Seen by Provider: 04/21/19 10:01 Primary Care Provider: [facility] [Primary Care Provider] - Follow up as needed Mode of Arrival: Ambulatory Information source: Patient Notes: This 33-year-old female presents to the emergency department with difficulty breathing wheeze abdominal pain. Reports the difficulty breathing wheezing started yesterday. She denies history of asthma COPD. Reports she is a former smoker. Also complains of abdominal pain that originates in her right lower quad and radiates up across her abdomen into her left shoulder. Patient reports she has been here several times for this pain. Review of records notes an OB consult that indicates she may have endometriosis. Patient denies fever vomiting diarrhea. Patient reports she has not been working out for the past 2 weeks because of the abdominal pain. Reports she has never had trouble with her breathing. Patient respiratory rate seems slightly labored positive wheezes. I have greeted and performed a rapid initial assessment of this patient. A comprehensive ED assessment and evaluation of the patient, analysis of test results and completion of the medical decision making process will be conducted by additional ED providers. Dictation of this chart was performed using voice recognition software; therefore, there may be some unintended grammatical errors. TRAVEL OUTSIDE OF THE [place] IN LAST 30 DAYS: No - Related Data Allergies/Adverse Reactions: No Known Allergies Allergy (Verified 04/21/19 09:46) Past Medical History - Social History Frequency of alcohol use: None Drug Abuse: None Endocrine Medical History: Reports: Hx Diabetes Mellitus Type 2 Renal/ Medical History: Denies: Hx Peritoneal Dialysis - Immunizations Immunizations up to date: Yes Physical Exam - Vital signs Vitals: Temp Pulse Resp BP Pulse Ox 98.2 F 84 18 123/82 100 04/21/19 09:52 04/21/19 09:52 04/21/19 09:52 04/21/19 09:52 04/21/19 09:52 Course - Vital Signs Vital signs: Temp Pulse Resp BP Pulse Ox 98.2 F 84 18 123/82 100 04/21/19 09:52 04/21/19 09:52 04/21/19 09:52 04/21/19 09:52 04/21/19 09:52 Doctor's Discharge - Discharge Referrals: [facility] [Primary Care Provider] - Follow up as needed
--- NOTE | 2019-04-21 10:39 | RADIOLOGY REPORT (SQ) ---
EXAM DESCRIPTION: CHEST 2 VIEWS COMPLETED DATE/TIME: 04/21/2019 10:29 am REASON FOR STUDY: wheeze, difficulty breathing COMPARISON: None. EXAM PARAMETERS: NUMBER OF VIEWS: two views TECHNIQUE: Digital Frontal and Lateral radiographic views of the chest acquired. RADIATION DOSE: NA LIMITATIONS: none FINDINGS: LUNGS AND PLEURA: No opacities, masses or pneumothorax. No pleural effusion. MEDIASTINUM AND HILAR STRUCTURES: No masses or contour abnormalities. HEART AND VASCULAR STRUCTURES: Heart normal size. No evidence for failure. BONES: No acute findings. HARDWARE: None in the chest. OTHER: No other significant finding. IMPRESSION: NO ACUTE RADIOGRAPHIC FINDING IN THE CHEST. TECHNICAL DOCUMENTATION: JOB ID: [id number] [employer]- All Rights Reserved Reading location - IP/workstation name: [email or web address]
[2019-04-21] MEDS ORDERED: ONDANSETRON HCL INJ/PF 4 MG/2 ML SDV IV ONE (11:02)
[2019-04-21] MEDS ORDERED: KETOROLAC TROMETHAMINE INJ/PF 30 MG/1 ML SDV IV ONE (11:02)
[2019-04-21] MEDS ORDERED: NORMAL SALINE 1000 ML 1,000 ML IV ONE (11:03)
--- NOTE | 2019-04-21 11:28 | ER Document Report ---
ED General - General Chief Complaint: Breathing Difficulty Stated Complaint: CHEST CONGESTION Time Seen by Provider: 04/21/19 10:01 Primary Care Provider: ANDREI MARQUEZ MD [ACTIVE STAFF] - Follow up in 3-5 days [facility] [Primary Care Provider] - Follow up tomorrow Mode of Arrival: Ambulatory TRAVEL OUTSIDE OF THE [place] IN LAST 30 DAYS: No - HPI Notes: 33-year-old female to the emergency department with complaints of cough, chest congestion, shortness of breath, wheezing that began 3 days ago. She denies any fevers, chills, nausea, vomiting, diaphoresis. She states that has had chest pain with coughing and big deep breath. She is a former smoker and quit about 5 months ago. She denies any sick contacts or recent travel. He also reports pe lvic pain that has been ongoing for the past 3 years. She states that she has a history of endometriosis and her HEAD OF [employer]ICS [employer] COMPLIANCE just started her on control to help control her symptoms. She states that she has not had a menstrual cycle since December. She denies chance of . - Related Data Allergies/Adverse Reactions: No Known Allergies Allergy (Verified 04/21/19 09:46) Past Medical History - General Information source: Patient - Social History Smoking Status: Never Smoker Frequency of alcohol use: None Drug Abuse: None Family History: Reviewed & Not Pertinent Patient has suicidal ideation: No Patient has homicidal ideation: No Endocrine Medical History: Reports: Hx Diabetes Mellitus Type 2 Renal/ Medical History: Denies: Hx Peritoneal Dialysis - Immunizations Immunizations up to date: Yes Review of Systems - Review of Systems Constitutional: denies: Chills, Fever EENT: No symptoms reported Cardiovascular: Chest pain Respiratory: Cough, Hurts to breathe, Short of breath, Sputum, Wheezing. denies: Hemoptysis, Stridor Gastrointestinal: See HPI, Abdominal pain. denies: Diarrhea, Nausea, Vomiting Genitourinary: No symptoms reported Musculoskeletal: No symptoms reported Skin: No symptoms reported Neurological/Psychological: No symptoms reported -: Yes All other systems reviewed and negative Physical Exam - Vital signs Vitals: Temp Pulse Resp BP Pulse Ox 98.2 F 84 18 123/82 100 04/21/19 09:52 04/21/19 09:52 04/21/19 09:52 04/21/19 09:52 04/21/19 09:52 Interpretation: Normal - General General appearance: Appears well In distress: None - HEENT Head: Normocephalic, Atraumatic Eyes: Normal Pupils: PERRL Ears: Normal External canal: Normal Tympanic membrane: Normal Sinus: Normal Nasal: Normal Mouth/Lips: Normal Mucous membranes: Normal Pharynx: Normal Neck: Normal - Respiratory Respiratory status: No respiratory distress Chest status: Nontender, Pain with cough, Pain with deep breathing. No: Accessory muscle use, Prolonged expirations Breath sounds: Decreased air movement, Wheezing - Scattered expiratory wheezes throughout with decreased air movement. No accessory muscle use. No tripoding. No respiratory distress noted Chest palpation: Normal - Cardiovascular Rhythm: Regular Heart sounds: Normal auscultation Murmur: No - Abdominal Inspection: Normal Distension: No distension Bowel sounds: Normal Tenderness: Tender - Tenderness to palpation over the lower pelvic abdomen. Negative McBurney's point. No rebound or guarding. Organomegaly: No organomegaly - Neurological Neuro grossly intact: Yes Cognition: Normal Orientation: AAOx4 Bonham Coma Scale Eye Opening: Spontaneous Bonham Coma Scale Verbal: Oriented Luz Coma Scale Motor: Obeys Commands Luz Coma Scale Total: 15 Speech: Normal Motor strength normal: LUE, RUE, LLE, RLE Sensory: Normal - Psychological Associated symptoms: Normal affect, Normal mood - Skin Skin Temperature: Warm Skin Moisture: Dry Skin Color: Normal Course - Re-evaluation Re-evalutation: 04/21/19 11:34 Chest X-Ray 04/21/19 10:08 IMPRESSION: NO ACUTE RADIOGRAPHIC FINDING IN THE CHEST. 04/21/19 Impression: Bronchitis with wheezing, chronic pelvic pain from endometriosis. Patient is feeling better after medicine -- her wheezing is much improved. We had a lengthy discussion about appropriate follow up for her endometriosis. 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 Since she does not have a history of wheezing, will cover with Abx (doxy), give inhaler as well as steroids. Urged to return if worse. Patient agrees with the plan. - Vital Signs Vital signs: Temp Pulse Resp BP Pulse Ox 98.2 F 84 20 103/71 100 04/21/19 14:57 04/21/19 09:52 04/21/19 14:57 04/21/19 14:57 04/21/19 14:57 - Laboratory Result Diagrams: 04/21/19 11:45 04/21/19 11:45 Laboratory results interpreted by me: 04/21/19 04/21/19 04/21/19 11:45 11:45 13:01 Eosinophils % 11.3 H Absolute Eosinophils 0.9 H Chloride 109 H Urine Ascorbic Acid 20 H - Diagnostic Test Radiology reviewed: Image reviewed, Reports reviewed Discharge - Discharge Clinical Impression: Bronchitis, Wheezing, Chronic pelvic pain in female Condition: Stable Disposition: HOME, SELF-CARE Instructions: Bronchitis With Bronchospasm (Wheezing) ([facility]), Pelvic Pain ([facility]) Additional Instructions: FOLLOW UP WITH OBGYN WITHOUT FAIL FOR FURTHER MANAGEMENT OF YOUR PELVIC PAIN. TAKE ALL MEDICINES PRESCRIBED. PUSH FLUIDS. REST. RETURN IF INTRACTABLE VOMITING, FEVERS, WORSENING PAIN, SHORTNESS OF BREATH, OR ANY OTHER CONCERNING SYMPTOMS. Prescriptions: Benzonatate [Tessalon Perle 100 mg Capsule] 100 mg PO Q8HP PRN #21 cap PRN Reason: Albuterol Sulfate [Albuterol Sulfate Hfa] 18 gm IH Q4H #1 hfa.aer.ad Cyclobenzaprine HCl [Flexeril 5 mg Tablet] 1 - 2 tab PO TID PRN #15 tablet PRN Reason: Doxycycline Hyclate 100 mg PO BID #20 capsule Hydrocodone/Acetaminophen [[place] 5-325 mg Tablet] 1 tab PO Q6H #10 tablet Ibuprofen [Motrin 800 mg Tablet] 800 mg PO Q8H #30 tablet Methylprednisolone [Medrol Dosepack (4 mg/Tab) 21 Tab/Dosepak] 4 mg PO ASDIR PRN #21 tab.ds.pk PRN Reason: [facility]errals: [facility] [Primary [facility]] - Follow up tomorrow ANDREI MARQUEZ MD [ACTIVE STAFF] - Follow up in 3-5 days
[2019-04-21] MEDS ORDERED: GUAIFENESIN SYRP 200 MG/10 ML UDC PO ONE (11:34)
[2019-04-21 12:24] LABS: ABSOLUTE EOSINOPHILS # (AUTO) 0.9 10^3/uL (0.0-0.6); ABSOLUTE MONOCYTES (AUTO) 0.3 10^3/uL (0.1-1.4); ABSOLUTE NEUT (AUTO) 3.4 10^3/uL (1.7-8.2); BASOPHILS % (AUTO) 0.5 % (0-2); EOSINOPHILS % (AUTO) 11.3 % (0-6); HEMATOCRIT 42.9 % (36.0-47.0); MEAN CORPUSCULAR HEMOGLOBIN 27.8 pg (27.0-33.4); MEAN CORPUSCULAR HGB CONC 32.7 g/dL (32.0-36.0); MEAN CORPUSCULAR VOLUME 85 fl (80-97); MONOCYTES % (AUTO) 3.7 % (3-13); PLATELET COUNT 239 10^3/uL (150-450); RED BLOOD COUNT 5.04 10^6/uL (3.72-5.28); RED CELL DISTRIBUTION WIDTH 13.9 % (11.5-14.0); SEGMENTED NEUTROPHILS % (AUTO) 44.5 % (42-78); TOTAL CELLS COUNTED % (AUTO) 100 %; WHITE BLOOD COUNT 7.6 10^3/uL (4.0-10.5)
[2019-04-21 12:50] LABS: ALBUMIN 4.3 g/dL (3.5-5.0); ALKALINE PHOSPHATASE 51 U/L (38-126); ANION GAP 8 (5-19); ASPARTATE AMINO TRANSFERASE 32 U/L (14-36); BILIRUBIN,DIRECT 0.3 mg/dL (0.0-0.4); BILIRUBIN,TOTAL 0.7 mg/dL (0.2-1.3); BLOOD UREA NITROGEN 8 mg/dL (7-20); CALCIUM 9.2 mg/dL (8.4-10.2); CARBON DIOXIDE 23 mmol/L (22-30); CHLORIDE 109 mmol/L (98-107); GLUCOSE 92 mg/dL (75-110); POTASSIUM 4.2 mmol/L (3.6-5.0); TOTAL PROTEIN 7.8 g/dL (6.3-8.2)
[2019-04-21 13:17] LABS: APPEARANCE,URINE SLIGHTLY-CLOUDY; BILIRUBIN,URINE NEGATIVE (NEGATIVE); COLOR,URINE YELLOW; GLUCOSE, URINE NEGATIVE (NEGATIVE); KETONES,URINE NEGATIVE (NEGATIVE); LEUKOCYTE ESTERASE,URINE NEGATIVE (NEGATIVE); NITRITE,URINE NEGATIVE (NEGATIVE); PROTEIN,URINE NEGATIVE (NEGATIVE); URINE SPECIFIC GRAVITY 1.014; UROBILINOGEN,URINE NEGATIVE mg/dL (<2.0)
[2019-04-21] MEDS ORDERED: HYDROCODONE/ACETAMINOPHEN 5-325 MG TABLET PO ONE (13:26)
[2019-04-21] MEDS ORDERED: ALBUTEROL SULFATE 0.083% NEB 2.5 MG/3 ML AMPUL NEB ONE (13:26)
[2019-04-21 15:05] VITALS: BP 103/71
== END 2019-04-21 15:00 | disposition home or self-care (01) ==
LOC: ER 09:46
DX: J40 Bronchitis, not specified as acute or chronic (principal); N80.9 Endometriosis, unspecified; R10.2 Pelvic and perineal pain; G89.29 Other chronic pain; R06.2 Wheezing; R05 Cough; R09.89 Other specified symptoms and signs involving the circulatory and respiratory systems; R07.1 Chest pain on breathing; Z87.891 Personal history of nicotine dependence; E11.9 Type 2 diabetes mellitus without complications
CPT/HCPCS: 94640 ×2; 99285; 96361; 96374; 96375; 36415; 83690; 84703; 85025; 80053; 81001; 71046; J1885; J7512; J2405; J7030; J7620

== ENCOUNTER 2019-07-11 15:25 | Emergency (ER) | payer OTHER, MEDICAID ==
--- NOTE | 2019-07-11 16:18 | ER Document Report ---
ED Medical Screen (RME) - General Chief Complaint: Vomiting/Diarrhea Stated Complaint: VOMITING Time Seen by Provider: 07/11/19 16:15 Primary Care Provider: [facility] [Primary [facility]] - Follow up as needed Mode of Arrival: Ambulatory Information source: Patient Notes: 33-year-old female presents to ED for complaint of nausea vomiting and diarrhea and generalized abdominal pain. He states the pain is been for over a week. States her last menstrual cycle started about 02 June but she is very irregular. She states she is also having some vaginal bleeding. She states she is having some clots mixed with her urine. She states she put a tampon in and she does not have a clots now. She states she went to the doctor last week and was diagnosed with H. pylori and started on antibiotics. Has not been able to eat since all this started. I have greeted and performed a rapid initial assessment of this patient. A comprehensive ED assessment and evaluation of the patient, analysis of test results and completion of medical decision making process will be conducted by an additional ED providers. TRAVEL OUTSIDE OF THE [place] IN LAST 30 DAYS: No - Related Data Allergies/Adverse Reactions: No Known Allergies Allergy (Verified 04/21/19 09:46) Past Medical History Endocrine Medical History: Reports: Hx Diabetes Mellitus Type 2 Renal/ Medical History: Denies: Hx Peritoneal Dialysis - Immunizations Immunizations up to date: Yes Doctor's Discharge - Discharge Referrals: [facility] [Primary [facility]] - Follow up as needed
[2019-07-11 17:34] LABS: ABSOLUTE BASOPHILS # (AUTO) 0.1 10^3/uL (0.0-0.2); ABSOLUTE EOSINOPHILS # (AUTO) 0.3 10^3/uL (0.0-0.6); ABSOLUTE LYMPHOCYTES (AUTO) 4.5 10^3/uL (0.5-4.7); ABSOLUTE MONOCYTES (AUTO) 0.3 10^3/uL (0.1-1.4); ABSOLUTE NEUT (AUTO) 4.4 10^3/uL (1.7-8.2); BASOPHILS % (AUTO) 0.6 % (0-2); EOSINOPHILS % (AUTO) 3.2 % (0-6); HEMATOCRIT 42.2 % (36.0-47.0); LYMPHOCYTES % (AUTO) 46.4 % (13-45); MEAN CORPUSCULAR HEMOGLOBIN 28.1 pg (27.0-33.4); MEAN CORPUSCULAR HGB CONC 33.2 g/dL (32.0-36.0); MEAN CORPUSCULAR VOLUME 85 fl (80-97); MONOCYTES % (AUTO) 3.6 % (3-13); PLATELET COUNT 295 10^3/uL (150-450); RED BLOOD COUNT 4.98 10^6/uL (3.72-5.28); RED CELL DISTRIBUTION WIDTH 12.9 % (11.5-14.0); SEGMENTED NEUTROPHILS % (AUTO) 46.2 % (42-78); TOTAL CELLS COUNTED % (AUTO) 100 %; WHITE BLOOD COUNT 9.6 10^3/uL (4.0-10.5)
[2019-07-11 17:53] LABS: ALBUMIN 4.4 g/dL (3.5-5.0); ALKALINE PHOSPHATASE 68 U/L (38-126); ANION GAP 10 (5-19); ASPARTATE AMINO TRANSFERASE 22 U/L (14-36); BILIRUBIN,TOTAL 0.6 mg/dL (0.2-1.3); BLOOD UREA NITROGEN 9 mg/dL (7-20); CALCIUM 9.3 mg/dL (8.4-10.2); CARBON DIOXIDE 24 mmol/L (22-30); CHLORIDE 104 mmol/L (98-107); GLUCOSE 77 mg/dL (75-110); POTASSIUM 3.7 mmol/L (3.6-5.0)
[2019-07-11 18:12] LABS: APPEARANCE,URINE SLIGHTLY-CLOUDY; BILIRUBIN,URINE NEGATIVE (NEGATIVE); GLUCOSE, URINE NEGATIVE (NEGATIVE); KETONES,URINE TRACE mg/dL (NEGATIVE); PROTEIN,URINE 30 mg/dL (NEGATIVE); URINE SPECIFIC GRAVITY 1.029
[2019-07-11 18:13] LABS: COLOR,URINE DARK YELLOW
[2019-07-11] MEDS ORDERED: METOCLOPRAMIDE HCL INJ/PF 10 MG/2 ML SDV IV ONE (21:00)
[2019-07-11] MEDS ORDERED: NORMAL SALINE 1000 ML 1,000 ML IV ONE (21:00)
[2019-07-11 21:56] VITALS: BP 100/53
--- NOTE | 2019-07-11 22:28 | ER Document Report ---
ED General - General Chief Complaint: Nausea/Vomiting/Diarrhea Stated Complaint: VOMITING Time Seen by Provider: 07/11/19 16:15 Primary Care Provider: OSMAN SHORE [Primary Care Provider] - Follow up in 3-5 days Mode of Arrival: Ambulatory Notes: Patient is a 33-year-old female that presents to the emergency department for chief complaint of nausea, vomiting diarrhea. Patient states that she was diagnosed with H. pylori and gastritis from urgent care and was started on multiple medications, but states that she is not feeling much better despite taking Zofran, she is having a hard time taking the antibiotics. She has had associated diarrhea with her nausea and vomiting. She denies any any blood in the stool or in the vomit. She is had some abdominal cramping associated with this as well. She currently rates her pain as a 2 out of 10 describes it as an aching sensation over most of her abdomen, is not focal. Denies any dysuria, hematuria or abnormal vaginal bleeding or discharge. Her first day of her last menstrual period was the 15th, she just finished it, does not believe that she is . Her symptoms have been going on for about 2 weeks now without much improvement. Past Medical History: Endometriosis Past Surgical History: Laparoscopy for endometriosis Social History: Denies tobacco, alcohol or drug use. Family History: Reviewed and noncontributory for presenting illness Allergies: Reviewed, see documented allergy list. REVIEW OF SYSTEMS: Other than noted above, the 12 point review of systems was reviewed with the patient and were negative, all pertinent findings are included in the HPI. PHYSICAL EXAMINATION: Vital signs reviewed, nursing noted reviewed. GENERAL: Patient appears mildly uncomfortable, but no acute distress. HEAD: Atraumatic, normocephalic. EYES: Eyes appear normal, extraocular movements intact, sclera anicteric, conjunctiva are normal. ENT: nares patent, oropharynx clear without exudates. Moist mucous membranes. NECK: Normal range of motion, supple without lymphadenopathy LUNGS: Breath sounds clear to auscultation bilaterally and equal. No wheezes rales or rhonchi. HEART: Regular rate and rhythm without murmurs ABDOMEN: Soft, mild generalized abdominal tenderness to palpation normoactive bowel sounds. No rebound, guarding, or rigidity. No masses appreciated. EXTREMITIES: Nontender, good range of motion, no pitting or edema. NEUROLOGICAL: No focal neurological deficits. Moves all extremities spontaneou sly Motor and sensory grossly intact on exam. PSYCH: Normal mood, normal affect. SKIN: Warm, Dry, normal turgor, no rashes or lesions noted on exposed skin TRAVEL OUTSIDE OF THE [place] IN LAST 30 DAYS: No - Related Data Allergies/Adverse Reactions: No Known Allergies Allergy (Verified 04/21/19 09:46) Past Medical History - General Information source: Patient - Social History Smoking Status: Never Smoker Chew tobacco use (# tins/day): No Frequency of alcohol use: None Drug Abuse: None Family History: Reviewed & Not Pertinent Patient has suicidal ideation: No Patient has homicidal ideation: No Endocrine Medical History: Reports: Hx Diabetes Mellitus Type 2 Renal/ Medical History: Denies: Hx Peritoneal Dialysis - Immunizations Immunizations up to date: Yes Physical Exam - Vital signs Vitals: Temp Pulse Resp BP Pulse Ox 99.2 F 71 16 114/74 97 07/11/19 17:09 07/11/19 17:09 07/11/19 17:09 07/11/19 17:09 07/11/19 17:09 Course - Re-evaluation Re-evalutation: Patient seen and examined vital signs reviewed. Laboratory data and/or imaging were ordered as appropriate for the patient's presenting symptoms and complaint, with consideration of any critical or life threatening conditions that may be associated with their obtained history and exam as noted above. Patient was treated with IV fluids and Reglan Results were reviewed when available and demonstrated unremarkable blood work, negative testing and UA is unremarkable as well. The patient was re-evaluated and was improved, still having some abdominal cramping, advised that she take the previously prescribed medications, and will give her a prescription for Phenergan to take at home. Evaluation was most consistent with nonspecific, nausea vomiting diarrhea, previous diagnosis of H. pylori Results were discussed with the patient at this point, after careful consideration I feel that that patient can be discharged from the emergency department, the patient was educated treatments and reasons to return to the emergency department based on their presumed diagnosis as noted above, they were advised to followup with a primary care physician in 2-3 days. Patient was agreeable to plan of care. *Note is created using voice recognition software and may contain spelling, syntax or grammatical errors. Laboratory 07/11/19 07/11/19 07/11/19 17:00 17:00 17:00 WBC 9.6 RBC 4.98 Hgb 14.0 Hct 42.2 MCV 85 MCH 28.1 MCHC 33.2 RDW 12.9 Plt Count 295 Lymph % (Auto) 46.4 H Edwards % (Auto) 3.6 Eos % (Auto) 3.2 Baso % (Auto) 0.6 Absolute Neuts (auto) 4.4 Absolute Lymphs (auto) 4.5 Absolute Monos (auto) 0.3 Absolute Eos (auto) 0.3 Absolute Basos (auto) 0.1 Seg Neutrophils % 46.2 Sodium 138.1 Potassium 3.7 Chloride 104 Carbon Dioxide 24 Anion Gap 10 BUN 9 Creatinine 0.72 Est GFR ( Amer) > 60 Est GFR (MDRD) Non-Af > 60 Glucose 77 Calcium 9.3 Total Bilirubin 0.6 Direct Bilirubin 0.0 Neonat Total Bilirubin Not Reportable Neonat Direct Bilirubin Not Reportable Neonat Indirect Bili Not Reportable AST 22 ALT 18 Alkaline Phosphatase 68 Total Protein 8.0 Albumin 4.4 Serum HCG, Qual NEGATIVE Urine Color Urine Appearance Urine pH Ur Specific Churdan Urine Protein Urine Glucose (UA) Urine Ketones Urine Blood Urine Nitrite (Reflex) Urine Bilirubin Urine Urobilinogen Leukocyte Esterase Rfl Urine RBC (Auto) U Hyaline Cast (Auto) Urine WBC (Reflex) Squamous Epi Cells Auto Urine Mucus (Auto) Urine Ascorbic Acid Blood Type Rhogam Indicated 07/11/19 07/11/19 17:00 17:00 WBC RBC Hgb Hct MCV MCH MCHC RDW Plt Count Lymph % (Auto) Edwards % (Auto) Eos % (Auto) Baso % (Auto) Absolute Neuts (auto) Absolute Lymphs (auto) Absolute Monos (auto) Absolute Eos (auto) Absolute Basos (auto) Seg Neutrophils % Sodium Potassium Chloride Carbon Dioxide Anion Gap BUN Creatinine Est GFR ( Amer) Est GFR (MDRD) Non-Af Glucose Calcium Total Bilirubin Direct Bilirubin Neonat Total Bilirubin Neonat Direct Bilirubin Neonat Indirect Bili AST ALT Alkaline Phosphatase Total Protein Albumin Serum HCG, Qual Urine Color DARK YELLOW Urine Appearance SLIGHTLY-CLOUDY Urine pH 6.0 Ur Specific Churdan 1.029 Urine Protein 30 H Urine Glucose (UA) NEGATIVE Urine Ketones TRACE H Urine Blood NEGATIVE Urine Nitrite (Reflex) NEGATIVE Urine Bilirubin NEGATIVE Urine Urobilinogen 4.0 H Leukocyte Esterase Rfl NEGATIVE Urine RBC (Auto) 1 U Hyaline Cast (Auto) 2 Urine WBC (Reflex) 3 Squamous Epi Cells Auto 15 Urine Mucus (Auto) MANY Urine Ascorbic Acid NEGATIVE Blood Type A POSITIVE Rhogam Indicated RHOGAM NOT INDICATED - Vital Signs Vital signs: Temp Pulse Resp BP Pulse Ox 98.4 F 57 L 18 100/53 L 100 07/11/19 21:55 07/11/19 21:55 07/11/19 21:55 07/11/19 21:55 07/11/19 21:55 - Laboratory Result Diagrams: 07/11/19 17:00 07/11/19 17:00 Laboratory results interpreted by me: 07/11/19 07/11/19 17:00 17:00 Lymph % (Auto) 46.4 H Urine Protein 30 H Urine Ketones TRACE H Urine Urobilinogen 4.0 H Discharge - Discharge Clinical Impression: Nausea vomiting and diarrhea Condition: Stable Disposition: HOME, SELF-CARE Instructions: Diarrhea, Nonspecific ([facility]), Vomiting ([facility]) Prescriptions: Promethazine HCl [Phenergan 25 mg Tablet] 25 mg PO Q8H PRN #15 tablet PRN Reason: nausea/vomiting [facility]errals: [facility] [[facility]] - Follow up in 3-5 days
== END 2019-07-11 22:37 | disposition home or self-care (01) ==
LOC: ER 15:25
DX: R11.2 Nausea with vomiting, unspecified (principal); R19.7 Diarrhea, unspecified; E11.9 Type 2 diabetes mellitus without complications
CPT/HCPCS: 99284; 96361; 96374; 86900; 86901; 36415; 84703; 85025; 80053; 81001; J2765; J7030

== ENCOUNTER 2019-07-12 15:21 | Emergency (ER) | payer OTHER, MEDICAID ==
[2019-07-12] MEDS ORDERED: METOCLOPRAMIDE HCL INJ/PF 10 MG/2 ML SDV IV ONE (16:34)
[2019-07-12] MEDS ORDERED: NORMAL SALINE 1000 ML 1,000 ML IV PRN (16:34)
--- NOTE | 2019-07-12 16:34 | ER Document Report ---
ED Medical Screen (RME) - General Chief Complaint: Abdominal Pain Stated Complaint: ABDOMINAL PAIN Time Seen by Provider: 07/12/19 16:25 Primary Care Provider: OSMAN SHORE [Primary Care Provider] - Follow up as needed Notes: Patient presents with chief complaint persistent nausea after being seen here yesterday. Patient was treated for her nausea and vomiting yesterday and discharged home after she felt better. Currently she is complaining of cough and general malaise. She is also complaining of persistent nausea and vomiting and cannot hold anything down. She did fill the Phenergan prescription she received states that did not work. Says she previously taken Zofran if not work. No fevers or chills, no chest pain, does complain of shortness of breath, no urinary symptoms. Patient did have lab work done yesterday Exam: Mildly ill-appearing in no acute distress, rhonchi heard in the left lower lobe, regular cardiac rate and rhythm I have greeted and performed a rapid initial assessment of this patient. A comprehensive ED assessment and evaluation of the patient, analysis of test results and completion of medical decision making process will be conducted by an additional ED providers. TRAVEL OUTSIDE OF THE [place] IN LAST 30 DAYS: No - Related Data Allergies/Adverse Reactions: No Known Allergies Allergy (Verified 04/21/19 09:46) Past Medical History Endocrine Medical History: Reports: Hx Diabetes Mellitus Type 2 Renal/ Medical History: Denies: Hx Peritoneal Dialysis - Immunizations Immunizations up to date: Yes Physical Exam - Vital signs Vitals: Temp Pulse Resp BP Pulse Ox 98.3 F 71 18 124/58 L 99 07/12/19 15:26 07/12/19 15:26 07/12/19 15:26 07/12/19 15:26 07/12/19 15:26 Course - Vital Signs Vital signs: Temp Pulse Resp BP Pulse Ox 98.3 F 71 18 124/58 L 99 07/12/19 15:26 07/12/19 15:26 07/12/19 15:26 07/12/19 15:26 07/12/19 15:26 Doctor's Discharge - Discharge Referrals: [facility] [Primary Care Provider] - Follow up as needed
[2019-07-12] MEDS ORDERED: DIPHENHYDRAMINE HCL 50 MG/ML VIAL IV ONE (17:11)
[2019-07-12] MEDS ORDERED: HALOPERIDOL LACTATE INJ 5 MG/1 ML VIAL IV ONE (17:11)
--- NOTE | 2019-07-12 17:51 | ER Document Report ---
ED General - General Chief Complaint: Abdominal Pain Stated Complaint: ABDOMINAL PAIN Time Seen by Provider: 07/12/19 16:25 Primary Care Provider: KATE WELCH MD [ACTIVE STAFF] - Follow up as needed [facility] [[facility]] - Follow up as needed Notes: Patient presents with abdominal pain lower, radiating to the back, intermittent for a few days. She has some slight frequency of urination but no vaginal discharge. She is early first trimester. She denies history of STIs. She has been passing stool without vomiting and has no fever. TRAVEL OUTSIDE OF THE [place] IN LAST 30 DAYS: No - Related Data Allergies/Adverse Reactions: No Known Allergies Allergy (Verified 04/21/19 09:46) Past Medical History - Social History Smoking Status: Never Smoker Chew tobacco use (# tins/day): No Frequency of alcohol use: None Drug Abuse: None Family History: Reviewed & Not Pertinent Patient has suicidal ideation: No Patient has homicidal ideation: No Endocrine Medical History: Reports: Hx Diabetes Mellitus Type 2 Renal/ Medical History: Denies: Hx Peritoneal Dialysis - Immunizations Immunizations up to date: Yes Review of Systems - Review of Systems Notes: REVIEW OF SYSTEMS GEN: Denies fever, chills, weight loss ENT: Denies sore throat, nasal discharge, ear pain EYES: Denies blurry vision, eye pain, discharge CV: Denies chest pain, palpitations, edema RESP: Denies cough, shortness of breath, wheezing GI: As per HPI MSK: Denies joint pain/swelling, edema, SKIN: Denies rash, skin lesions LYMPH: Denies swollen glands/lymph nodes NEURO: Denies headache, focal weakness or numbness, dizziness PSYCH: Denies depression, suicidal or homicidal ideation PHYSICAL EXAMINATION General: No acute distress, well-nourished Head: Atraumatic, normocephalic ENT: Mouth normal, oropharynx moist, no exudates or tonsillar enlargement Eyes: Conjunctiva normal, pupils equal, lids normal Neck: No JVD, supple, no guarding CVS: Normal rate, regular rhythm, no murmurs Resp: No resp distress, equal and normal breath sounds bilaterally GI: Nondistended, soft, no tenderness to palpation, no rebound or guarding Genitourinary: Scant discharge. No cervical motion tenderness or other discomfort. Normal external times a day. Ext: No deformities, no edema, normal range of motion in upper and lower ext Back: No CVA or midline TTP Skin: No rash, warm Lymphatic: No lymphadeopathy noted Neuro: Awake, alert. Face symmetric. GCS 15. Physical Exam - Vital signs Vitals: Temp Pulse Resp BP Pulse Ox 98.3 F 71 18 124/58 L 99 07/12/19 15:26 07/12/19 15:26 07/12/19 15:26 07/12/19 15:26 07/12/19 15:26 Course - Vital Signs Vital signs: Temp Pulse Resp BP Pulse Ox 98.7 F 68 16 112/58 L 98 07/12/19 19:16 07/12/19 19:16 07/12/19 19:16 07/12/19 19:16 07/12/19 19:16 - Laboratory Laboratory results interpreted by me: Patient presents with lower abdominal pain mild, no cervical motion tenderness, scant discharge with a normal wet mount except for leukorrhea which is probably from , and a positive urinalysis. She will be treated with Macrobid given and [facility]. She has no signs of sepsis looks well and is tolerating p.o. already. I have discussed with the patient there likely diagnosis, aftercare plan, follow-up plans and my usual and customary return precautions. They verbalized understanding of this. Discharge - Discharge Clinical Impression: Upper abdominal pain of unknown etiology Condition: Good Disposition: HOME, SELF-CARE Instructions: Abdominal Pain ([facility]) Additional Instructions: Pleaseask primary care to refer to GI for endoscopy Prescriptions: Dicyclomine HCl [Bentyl 20 mg Tablet] 20 mg PO QIDP PRN #14 tablet PRN Reason: Promethazine HCl [Phenergan 25 mg Supp.rect] 1 supp MN Q6H #12 supp.rect Referrals: [facility] [Primary Care [facility]] - Follow up as needed KATE WELCH MD [ACTIVE STAFF] - Follow up as needed
--- NOTE | 2019-07-12 18:05 | RADIOLOGY REPORT (SQ) ---
EXAM DESCRIPTION: CHEST 2 VIEWS COMPLETED DATE/TIME: 07/12/2019 5:47 pm REASON FOR STUDY: cough and SOB COMPARISON: 04/21/2019 EXAM PARAMETERS: NUMBER OF VIEWS: two views TECHNIQUE: Digital Frontal and Lateral radiographic views of the chest acquired. RADIATION DOSE: NA LIMITATIONS: none FINDINGS: LUNGS AND PLEURA: No opacities, masses or pneumothorax. No pleural effusion. MEDIASTINUM AND HILAR STRUCTURES: No masses or contour abnormalities. HEART AND VASCULAR STRUCTURES: Heart normal size. No evidence for failure. BONES: No acute findings. HARDWARE: None in the chest. OTHER: No other significant finding. IMPRESSION: No acute abnormality of the lungs. No focal airspace opacity. TECHNICAL DOCUMENTATION: JOB ID: [id number] [employer]- All Rights Reserved Reading location - IP/workstation name: [email or web address]
[2019-07-12 19:17] VITALS: BP 112/58
== END 2019-07-12 19:24 | disposition home or self-care (01) ==
LOC: ER 15:21
DX: O26.891 Other specified pregnancy related conditions, first trimester (principal); R10.10 Upper abdominal pain, unspecified; R10.30 Lower abdominal pain, unspecified; R35.0 Frequency of micturition; N89.8 Other specified noninflammatory disorders of vagina; O24.111 Pre-existing type 2 diabetes mellitus, in pregnancy, first trimester; E11.9 Type 2 diabetes mellitus without complications; Z3A.00 Weeks of gestation of pregnancy not specified
CPT/HCPCS: 99284; 96361; 96374; 96375; 71046; J1200; J1630; J7030

== ENCOUNTER 2019-07-16 14:14 | Observation (INO) | payer OTHER, MEDICAID ==
[2019-07-16] MEDS ORDERED: NORMAL SALINE 1000 ML 1,000 ML IV ONE (14:38)
[2019-07-16] MEDS ORDERED: ONDANSETRON HCL INJ/PF 4 MG/2 ML SDV IV ONE ×2 (14:38→15:44)
--- NOTE | 2019-07-16 14:39 | ER Document Report ---
ED Medical Screen (RME) - General Stated Complaint: VOMITING, HEADACHE,DIARRHEA Time Seen by Provider: 07/16/19 14:34 Primary Care Provider: [facility] [[facility]] - Follow up as needed Mode of Arrival: Wheelchair Information source: Patient Notes: This 33-year-old female with history of H. pylori and just finished her last dose of medicine today presents with actively vomiting and bloody diarrhea. Patient reports she is been treated for the H. pylori reports she is still having symptoms. She reports her diarrhea is green but was bloody when she wiped. Reports she is been here at least 4 times and we keep sending her home. Patient is actively vomiting. I have greeted and performed a rapid initial assessment of this patient. A comprehensive ED assessment and evaluation of the patient, analysis of test results and completion of the medical decision making process will be conducted by additional ED providers. Dictation of this chart was performed using voice recognition software; therefore, there may be some unintended grammatical errors. TRAVEL OUTSIDE OF THE [place] IN LAST 30 DAYS: No - Related Data Allergies/Adverse Reactions: No Known Allergies Allergy (Verified 07/16/19 14:36) Past Medical History Endocrine Medical History: Reports: Hx Diabetes Mellitus Type 2 Renal/ Medical History: Denies: Hx Peritoneal Dialysis - Immunizations Immunizations up to date: Yes Physical Exam - Vital signs Vitals: Temp Pulse Resp BP Pulse Ox 98.9 F 91 24 H 124/78 98 07/16/19 14:35 07/16/19 14:35 07/16/19 14:35 07/16/19 14:35 07/16/19 14:35 Course - Vital Signs Vital signs: Temp Pulse Resp BP Pulse Ox 98.9 F 91 24 H 124/78 98 07/16/19 14:35 07/16/19 14:35 07/16/19 14:35 07/16/19 14:35 07/16/19 14:35 Doctor's Discharge - Discharge Referrals: [facility] [Primary Care [facility]] - Follow up as needed
[2019-07-16 15:40] LABS: ABSOLUTE BASOPHILS # (AUTO) 0.1 10^3/uL (0.0-0.2); ABSOLUTE EOSINOPHILS # (AUTO) 0.5 10^3/uL (0.0-0.6); ABSOLUTE LYMPHOCYTES (AUTO) 3.5 10^3/uL (0.5-4.7); ABSOLUTE MONOCYTES (AUTO) 0.4 10^3/uL (0.1-1.4); ABSOLUTE NEUT (AUTO) 6.1 10^3/uL (1.7-8.2); BASOPHILS % (AUTO) 0.8 % (0-2); EOSINOPHILS % (AUTO) 4.3 % (0-6); HEMATOCRIT 40.1 % (36.0-47.0); HEMOGLOBIN 13.6 g/dL (12.0-15.5); LYMPHOCYTES % (AUTO) 33.2 % (13-45); MEAN CORPUSCULAR HEMOGLOBIN 28.8 pg (27.0-33.4); MEAN CORPUSCULAR HGB CONC 33.8 g/dL (32.0-36.0); MEAN CORPUSCULAR VOLUME 85 fl (80-97); MONOCYTES % (AUTO) 3.8 % (3-13); PLATELET COUNT 251 10^3/uL (150-450); RED CELL DISTRIBUTION WIDTH 12.9 % (11.5-14.0); SEGMENTED NEUTROPHILS % (AUTO) 57.9 % (42-78); TOTAL CELLS COUNTED % (AUTO) 100 %; WHITE BLOOD COUNT 10.6 10^3/uL (4.0-10.5)
[2019-07-16] MEDS ORDERED: MORPHINE SULFATE 10 MG/ML INJ IV ONE (15:44)
[2019-07-16 15:55] LABS: ALBUMIN 4.1 g/dL (3.5-5.0); ALKALINE PHOSPHATASE 55 U/L (38-126); ANION GAP 12 (5-19); ASPARTATE AMINO TRANSFERASE 21 U/L (14-36); BILIRUBIN,DIRECT 0.1 mg/dL (0.0-0.4); BILIRUBIN,TOTAL 0.5 mg/dL (0.2-1.3); BLOOD UREA NITROGEN 8 mg/dL (7-20); CALCIUM 9.6 mg/dL (8.4-10.2); CARBON DIOXIDE 21 mmol/L (22-30); CHLORIDE 109 mmol/L (98-107); GLUCOSE 89 mg/dL (75-110); POTASSIUM 4.1 mmol/L (3.6-5.0); TOTAL PROTEIN 7.4 g/dL (6.3-8.2)
--- NOTE | 2019-07-16 16:38 | RADIOLOGY REPORT (SQ) ---
EXAM DESCRIPTION: CT ABD/PELVIS NO ORAL OR IV COMPLETED DATE/TIME: 07/16/2019 4:18 pm REASON FOR STUDY: diffuse abd pain COMPARISON: 03/11/2019 TECHNIQUE: CT scan of the abdomen and pelvis performed without intravenous or oral contrast. Images reviewed with lung, soft tissue, and bone windows. Reconstructed coronal and sagittal MPR images revi ewed. All images stored on PACS. All CT scanners at this facility use dose modulation, iterative reconstruction, and/or weight based d osing when appropriate to reduce radiation dose to as low as reasonably achievable (ALARA). [facility]: Dose Right [facility]: CareDose [facility]: Dose Right [facility]: Teradose 4D [facility]: Zipari RADIATION DOSE: CT Rad equipment meets quality standard of care and radiation dose reduction techniq ues were employed. CTDIvol: 6.0 mGy. DLP: 333 mGy-cm.mGy. LIMITATIONS: None. FINDINGS: LOWER CHEST: No significant findings. No nodules or infiltrates. NON-CONTRASTED LIVER, SPLEEN, ADRENALS: Evaluation limited by lack of IV contrast. No identified sign ificant masses. PANCREAS: No masses. No peripancreatic inflammatory changes. GALLBLADDER: No calcified stones. No inflammatory changes to suggest cholecystitis. RIGHT KIDNEY AND URETER: No cysts identified. No solid masses. No calcified stones. No hydronephrosis or hydroureter. LEFT KIDNEY AND URETER: No cysts identified. No solid masses. No calcified stones. No hydronephrosis or hydroureter. AORTA AND RETROPERITONEUM: No aneurysm. No retroperitoneal masses or adenopathy. BOWEL AND PERITONEAL CAVITY: No obvious masses or inflammatory changes. No free fluid. APPENDIX: Normal. PELVIS, BLADDER, AND ABDOMINAL WALL:Trace free fluid. Unremarkable bladder. BONES: No acute findings. OTHER: No other significant finding. IMPRESSION: NO ACUTE FINDINGS. TECHNICAL DOCUMENTATION: JOB ID: [id number] [id number] Quality ID # [id number]: Final reports with documentation of one or more dose reduction techniques (e.g., Au tomated exposure control, adjustment of the mA and/or kV according to patient size, use of iterative reconstruction technique) 2010 [employer]- All Rights Reserved Reading location - IP/workstation name: [place]
[2019-07-16 17:13] LABS: APPEARANCE,URINE CLOUDY; BILIRUBIN,URINE NEGATIVE (NEGATIVE); GLUCOSE, URINE NEGATIVE (NEGATIVE); KETONES,URINE NEGATIVE (NEGATIVE); LEUKOCYTE ESTERASE,URINE SMALL (NEGATIVE); NITRITE,URINE NEGATIVE (NEGATIVE); PROTEIN,URINE 30 mg/dL (NEGATIVE); URINE SPECIFIC GRAVITY 1.014; UROBILINOGEN,URINE NEGATIVE mg/dL (<2.0)
[2019-07-16 17:16] LABS: COLOR,URINE YELLOW
[2019-07-16] MEDS ORDERED: ONDANSETRON 4 MG TAB.RAPDIS PO ONE (17:17)
--- NOTE | 2019-07-16 17:56 | ER Document Report ---
ED General - General Chief Complaint: Nausea/Vomiting Stated Complaint: VOMITING, HEADACHE,DIARRHEA Time Seen by Provider: 07/16/19 14:34 Primary Care Provider: [facility] [Primary Care Provider] - Follow up as needed Mode of Arrival: Ambulatory Information source: Patient TRAVEL OUTSIDE OF THE [place] IN LAST 30 DAYS: No - HPI Notes: Patient presents complaining of abdominal pain and vomiting. She states this been going on for 2 weeks. She states that the pain is intermittent and comes in waves. It is crampy. Is moderate in intensity. Nothing makes it better or worse. It does go to her lower back. She said she also has had repeated episodes of vomiting and despite the multiple medications that have been prescribed and include Phenergan, Reglan, Zofran, she still has vomiting. She states she was recently told that she has H. pylori and she took all of the medicine but is no better. She denies any vaginal bleeding or vaginal symptoms. She states her last normal menstrual cycle was 1 week ago. Patient has no significant problems with stool. She is had no fevers or rashes. - Related Data Allergies/Adverse Reactions: No Known Allergies Allergy (Verified 07/16/19 14:36) Past Medical History - General Information source: Patient - Social History Smoking Status: Never Smoker Chew tobacco use (# tins/day): No Frequency of alcohol use: None Drug Abuse: None Family History: Reviewed & Not Pertinent Patient has suicidal ideation: No Patient has homicidal ideation: No Endocrine Medical History: Reports: Hx Diabetes Mellitus Type 2 Renal/ Medical History: Denies: Hx Peritoneal Dialysis - Immunizations Immunizations up to date: Yes Review of Systems - Review of Systems Constitutional: Malaise, Weakness. denies: Chills, Fever Cardiovascular: denies: Chest pain, Palpitations Respiratory: denies: Cough, Short of breath Gastrointestinal: Abdominal pain, Nausea, Vomiting -: Yes All other systems reviewed and negative Physical Exam - Vital signs Vitals: Temp Pulse Resp BP Pulse Ox 98.9 F 91 24 H 124/78 98 07/16/19 14:35 07/16/19 14:35 07/16/19 14:35 07/16/19 14:35 07/16/19 14:35 Interpretation: Normal - General General appearance: Appears well, Alert - HEENT Head: Normocephalic, Atraumatic Eyes: Normal Pupils: PERRL - Respiratory Respiratory status: No respiratory distress Chest status: Nontender Breath sounds: Normal Chest palpation: Normal - Cardiovascular Rhythm: Regular Heart sounds: Normal auscultation Murmur: No - Abdominal Inspection: Normal Distension: No distension Bowel sounds: Normal Tenderness: Tender - Mild diffuse tenderness to palpation Organomegaly: No organomegaly - Back Back: Normal, Nontender - Extremities General upper extremity: Normal inspection, Nontender, Normal color, Normal ROM, Normal temperature General lower extremity: Normal inspection, Nontender, Normal color, Normal ROM, Normal temperature, Normal weight bearing. No: Kenzie's sign - Neurological Neuro grossly intact: Yes Cognition: Normal Orientation: AAOx4 [place] Coma Scale Eye Opening: Spontaneous [place] Coma Scale Verbal: Oriented [place] Coma Scale Motor: Obeys Commands [place] Coma Scale Total: 15 Speech: Normal Motor strength normal: LUE, RUE, LLE, RLE Sensory: Normal - Psychological Associated symptoms: Normal affect, Normal mood - Skin Skin Temperature: Warm Skin Moisture: Dry Skin Color: Normal Course - Re-evaluation Re-evalutation: 07/16/19 17:54 Patient presents stating she is having intermittent abdominal pain and intractable vomiting. Despite fluids and 12 of Zofran here she continues to have vomiting. She states she is tried Reglan and Phenergan at home with no re lief. Patient has an equivocal urine so she will receive 1 dose of antibiotics. This is patient's third visit this week. She has had a negative ultrasound and CT scan. Her laboratories are remarkable for a mildly elevated white blood cell count and equivocal urine. Due to the fact that this is her third visit this week, she has intractable vomiting on this visit, she has been tried on 3 diffe rent antiemetics with no relief, it seems prudent for patient be admitted for further evaluation. I have discussed the case with the tumblers supervisor, Dr. Smith, he will see the patient in consultation. - Vital Signs Vital signs: Temp Pulse Resp BP Pulse Ox 98.9 F 91 24 H 124/78 98 07/16/19 14:35 07/16/19 14:35 07/16/19 14:35 07/16/19 14:35 07/16/19 14:35 - Laboratory Result Diagrams: 07/16/19 15:00 07/16/19 15:00 Laboratory results interpreted by me: 07/16/19 07/16/19 07/16/19 15:00 15:00 16:39 WBC 10.6 H Chloride 109 H Carbon Dioxide 21 L Urine Protein 30 H Urine Blood LARGE H Ur Leukocyte Esterase SMALL H - Diagnostic Test Radiology reviewed: Image reviewed, Reports reviewed Discharge - Discharge Clinical Impression: Intractable vomiting Qualifiers: Vomiting type: unspecified Nausea presence: with nausea Qualified Code(s): R11.2 - Nausea with vomiting, unspecified Condition: Stable Disposition: ADMITTED INPATIENT Admitting Provider: Boy (Hospitalist) Unit Admitted: Medical Floor [facility]errals: [facility] [Primary Care [facility]] - Follow up as needed
--- NOTE | 2019-07-16 18:05 | PDOC CONSULTATION ---
Consultation Consult Date: 07/16/19 Provider Consulted: KATE WELCH Consult reason:: intractable nausea and vomiting History of Present Illness Admission Date/PCP: [facility] History of Present Illness: ANGELY NIXON is a 33 year old female I was called about the patient from the ED she needs to be admitted for intractable nausea and vomiting CT scan is negative still having symptoms despite medications patient denies any hematemesis Hgb is stable Past Medical History Endocrine Medical History: Reports: Diabetes Mellitus Type 2 Social History Smoking Status: Never Smoker Electronic Cigarette use?: No Family History Family History: Reviewed & Not Pertinent Parental Family History Reviewed: Yes Children Family History Reviewed: Unknown Sibling(s) Family History Reviewed.: Unknown Medication/Allergy Home Medications: Albuterol Sulfate [Albuterol Sulfate Hfa] 18 gm IH Q4H #1 hfa.aer.ad 04/21/19 Benzonatate [Tessalon Perle 100 mg Capsule] 100 mg PO Q8HP PRN #21 cap 04/21/19 Cyclobenzaprine HCl [Flexeril 5 mg Tablet] 1 - 2 tab PO TID PRN #15 tablet 04/21/19 Doxycycline Hyclate 100 mg PO BID #20 capsule 04/21/19 Hydrocodone/Acetaminophen [[place] 5-325 mg Tablet] 1 tab PO Q6H #10 tablet 04/21/19 Ibuprofen [Motrin 800 mg Tablet] 800 mg PO Q8H #30 tablet 04/21/19 Methylprednisolone [Medrol Dosepack (4 mg/Tab) 21 Tab/Dosepak] 4 mg PO ASDIR PRN #21 tab.ds.pk 04/21/19 Naproxen [Naprosyn] 500 mg PO BID PRN 04/21/19 Promethazine HCl [Phenergan 25 mg Tablet] 25 mg PO Q8H PRN #15 tablet 07/11/19 Dicyclomine HCl [Bentyl 20 mg Tablet] 20 mg PO QIDP PRN #14 tablet 07/12/19 Promethazine HCl [Phenergan 25 mg Supp.rect] 1 supp NC Q6H #12 supp.rect 07/12/19 Allergies/Adverse Reactions: No Known Allergies Allergy (Verified 07/16/19 14:36) Review of Systems Constitutional: ABSENT: fever(s), headache(s), night sweats Eyes: ABSENT: visual disturbances Ears: ABSENT: hearing changes Nose, Mouth, and Throat: ABSENT: mouth pain, sore throat Respiratory: ABSENT: dyspnea, hemoptysis Gastrointestinal: PRESENT: nausea. ABSENT: coffee ground emesis, diarrhea, vomiting Genitourinary: ABSENT: dysuria, hematuria Musculoskeletal: ABSENT: joint swelling Integumentary: ABSENT: pruritus Neurological: ABSENT: syncope, tingling, tremor(s), vertigo Endocrine: ABSENT: polydipsia, polyphagia, polyuria Hematologic/Lymphatic: ABSENT: easy bruising Physical Exam Vital Signs: Temp Pulse Resp BP Pulse Ox 98.9 F 91 24 H 124/78 98 07/16/19 14:35 07/16/19 14:35 07/16/19 14:35 07/16/19 14:35 07/16/19 14:35 Intake & Output 07/15/19 07/16/19 07/17/19 06:59 06:59 06:59 Intake Total 1000 Balance 1000 Weight 65.771 kg General appearance: PRESENT: mild distress Head exam: PRESENT: atraumatic, normocephalic Eye exam: PRESENT: EOMI, PERRLA. ABSENT: nystagmus, scleral icterus Mouth exam: PRESENT: moist, neck supple Neck exam: ABSENT: meningismus, tenderness, thyromegaly Respiratory exam: PRESENT: clear to auscultation sascha, symmetrical. ABSENT: tachypnea, wheezes Cardiovascular exam: PRESENT: RRR, +S1. ABSENT: +S2 GI/Abdominal exam: PRESENT: soft. ABSENT: Arnold's sign, rebound, rigid Extremities exam: ABSENT: joint swelling Musculoskeletal exam: ABSENT: full ROM Neurological exam: PRESENT: awake. ABSENT: CN II-XII grossly intact Skin exam: ABSENT: cyanosis, mottled, normal color, pallor, urticaria, vesicles Results Laboratory Results: 07/16/19 15:00 07/16/19 15:00 07/16/19 07/16/19 07/16/19 15:00 15:00 15:00 WBC 10.6 H RBC 4.70 Hgb 13.6 Hct 40.1 MCV 85 MCH 28.8 MCHC 33.8 RDW 12.9 Plt Count 251 Seg Neutrophils % 57.9 Sodium 141.5 Potassium 4.1 Chloride 109 H Carbon Dioxide 21 L Anion Gap 12 BUN 8 Creatinine 0.67 Est GFR ( Amer) > 60 Glucose 89 Calcium 9.6 Total Bilirubin 0.5 AST 21 Alkaline Phosphatase 55 Total Protein 7.4 Albumin 4.1 Lipase Serum HCG, Qual NEGATIVE Urine Color Urine Appearance Urine pH Ur Specific [place] Urine Protein Urine Glucose (UA) Urine Ketones Urine Blood Urine Nitrite Ur Leukocyte Esterase Urine WBC (Auto) Urine RBC (Auto) 07/16/19 07/16/19 15:00 16:39 WBC RBC Hgb Hct MCV MCH MCHC RDW Plt Count Seg Neutrophils % Sodium Potassium Chloride Carbon Dioxide Anion Gap BUN Creatinine Est GFR ( Amer) Glucose Calcium Total Bilirubin AST Alkaline Phosphatase Total Protein Albumin Lipase 83.6 Serum HCG, Qual Urine Color YELLOW Urine Appearance CLOUDY Urine pH 7.0 Ur Specific [place] 1.014 Urine Protein 30 H Urine Glucose (UA) NEGATIVE Urine Ketones NEGATIVE Urine Blood LARGE H Urine Nitrite NEGATIVE Ur Leukocyte Esterase SMALL H Urine WBC (Auto) 14 Urine RBC (Auto) >182 Impressions: Abdomen/Pelvis CT 07/16/19 15:36 IMPRESSION: NO ACUTE FINDINGS. Assessment & Plan - Diagnosis (1) Intractable vomiting Qualifiers: Vomiting type: unspecified Nausea presence: with nausea Qualified Code(s): R11.2 - Nausea with vomiting, unspecified Plan: CT scan is negative, does have remote history of NSAID use will need EGD to rule out for peptic ulcer disease Risks, benefits and alternatives are discussed with the patient in detail further recommendations to follow if negative consider HIDA scan for biliary dyskinesia vs possible gastric emptying scan for work up - Time Time Spent: 50 to 70 Minutes
[2019-07-16 18:25] LABS: URINE AMPHETAMINES SCREEN NEGATIVE; URINE BARBITURATES SCREEN NEGATIVE; URINE BENZODIAZEPINES SCREEN NEGATIVE; URINE COCAINE SCREEN NEGATIVE; URINE MARIJUANA (THC) SCREEN UNCONFIRMED POSITIVE; URINE METHADONE SCREEN NEGATIVE; URINE PHENCYCLIDINE SCREEN NEGATIVE
[2019-07-16] MEDS ORDERED: IPRATROPIUM/ALBUTEROL 0.5-2.5 MG/3 ML AMPUL NEB PRN (18:26)
[2019-07-16] MEDS ORDERED: NORMAL SALINE 1000 ML 1,000 ML IV PRN (18:26)
[2019-07-16] MEDS ORDERED: MAG HYDROX/AL HYDROX/SIMETH SUSP 30 ML UDCUP PO PRN (18:26)
[2019-07-16] MEDS ORDERED: ACETAMINOPHEN 325 MG TABLET PO PRN (18:26)
[2019-07-16] MEDS ORDERED: TEMAZEPAM 15 MG CAPSULE PO PRN (18:26)
--- NOTE | 2019-07-16 18:26 | PDOC H&P ---
History of Present Illness Admission Date/PCP: [facility] History of Present Illness: ANGELY NIXON is a 33 year old female presenting to ED complaining of epigastric abdominal pain, nausea, vomiting, diarrhea for the last 2 weeks. Patient has presented several times to ED for the same reason. Abdominal pain is epigastric, intermittent, colicky, moderate in intensity, radiating to lower back, no alleviating or exacerbating factor identified, accompanied with nonbilious, nonbloody intractable nausea and vomiting. Denies any previous history of abdominal pain except for recently diagnosed H. pylori which she stated that she completed a treatment, denies history of IBD or IBS, stating she was diagnosed with diabetes however does not receive any treatment, denies any history of marijuana abuse or any other drug abuse. Denies any fever, chills, shortness of breath, chest pain, urinary symptoms. In ED CT abdomen pelvis did not show any acute abnormalities. Dr. Smith from GI consulted and he is planning possible EGD followed by HIDA scan. Past Medical History Endocrine Medical History: Reports: Diabetes Mellitus Type 2 Social History Smoking Status: Never Smoker Electronic Cigarette use?: No Family History Family History: Reviewed & Not Pertinent Parental Family History Reviewed: Yes Children Family History Reviewed: Yes Sibling(s) Family History Reviewed.: Yes Medication/Allergy Home Medications: Albuterol Sulfate [Albuterol Sulfate Hfa] 18 gm IH Q4H #1 hfa.aer.ad 04/21/19 Benzonatate [Tessalon Perle 100 mg Capsule] 100 mg PO Q8HP PRN #21 cap 04/21/19 Cyclobenzaprine HCl [Flexeril 5 mg Tablet] 1 - 2 tab PO TID PRN #15 tablet 04/21/19 Doxycycline Hyclate 100 mg PO BID #20 capsule 04/21/19 Hydrocodone/Acetaminophen [[place] 5-325 mg Tablet] 1 tab PO Q6H #10 tablet 04/21/19 Ibuprofen [Motrin 800 mg Tablet] 800 mg PO Q8H #30 tablet 04/21/19 Methylprednisolone [Medrol Dosepack (4 mg/Tab) 21 Tab/Dosepak] 4 mg PO ASDIR PRN #21 tab.ds.pk 04/21/19 Naproxen [Naprosyn] 500 mg PO BID PRN 04/21/19 Promethazine HCl [Phenergan 25 mg Tablet] 25 mg PO Q8H PRN #15 tablet 07/11/19 Dicyclomine HCl [Bentyl 20 mg Tablet] 20 mg PO QIDP PRN #14 tablet 07/12/19 Promethazine HCl [Phenergan 25 mg Supp.rect] 1 supp NE Q6H #12 supp.rect 07/12/19 Allergies/Adverse Reactions: No Known Allergies Allergy (Verified 07/16/19 14:36) Review of Systems Review of Systems: as per hpi Physical Exam Vital Signs: Temp Pulse Resp BP Pulse Ox 98.9 F 91 24 H 124/78 98 07/16/19 14:35 07/16/19 14:35 07/16/19 14:35 07/16/19 14:35 07/16/19 14:35 Intake & Output 07/15/19 07/16/19 07/17/19 06:59 06:59 06:59 Intake Total 1000 Balance 1000 Weight 65.771 kg General appearance: PRESENT: mild distress Head exam: PRESENT: atraumatic, normocephalic Respiratory exam: PRESENT: clear to auscultation sascha. ABSENT: rales, rhonchi, wheezes Cardiovascular exam: PRESENT: RRR. ABSENT: diastolic murmur, rubs, systolic murmur GI/Abdominal exam: PRESENT: guarding, normal bowel sounds, soft, tenderness - epigastric. ABSENT: distended, mass, organolmegaly, rebound Neurological exam: PRESENT: alert, awake, oriented to person, oriented to place, oriented to time, oriented to situation, CN II-XII grossly intact. ABSENT: motor sensory deficit Results Laboratory Results: 07/16/19 15:00 07/16/19 15:00 07/16/19 07/16/19 07/16/19 15:00 15:00 15:00 WBC 10.6 H RBC 4.70 Hgb 13.6 Hct 40.1 MCV 85 MCH 28.8 MCHC 33.8 RDW 12.9 Plt Count 251 Seg Neutrophils % 57.9 Sodium 141.5 Potassium 4.1 Chloride 109 H Carbon Dioxide 21 L Anion Gap 12 BUN 8 Creatinine 0.67 Est GFR ( Amer) > 60 Glucose 89 Calcium 9.6 Total Bilirubin 0.5 AST 21 Alkaline Phosphatase 55 Total Protein 7.4 Albumin 4.1 Lipase Serum HCG, Qual NEGATIVE Urine Color Urine Appearance Urine pH Ur Specific [place] Urine Protein Urine Glucose (UA) Urine Ketones Urine Blood Urine Nitrite Ur Leukocyte Esterase Urine WBC (Auto) Urine RBC (Auto) 07/16/19 07/16/19 15:00 16:39 WBC RBC Hgb Hct MCV MCH MCHC RDW Plt Count Seg Neutrophils % Sodium Potassium Chloride Carbon Dioxide Anion Gap BUN Creatinine Est GFR ( Amer) Glucose Calcium Total Bilirubin AST Alkaline Phosphatase Total Protein Albumin Lipase 83.6 Serum HCG, Qual Urine Color YELLOW Urine Appearance CLOUDY Urine pH 7.0 Ur Specific [place] 1.014 Urine Protein 30 H Urine Glucose (UA) NEGATIVE Urine Ketones NEGATIVE Urine Blood LARGE H Urine Nitrite NEGATIVE Ur Leukocyte Esterase SMALL H Urine WBC (Auto) 14 Urine RBC (Auto) >182 Impressions: Abdomen/Pelvis CT 07/16/19 15:36 IMPRESSION: NO ACUTE FINDINGS. Assessment and Plan - Diagnosis (1) Intractable vomiting Qualifiers: Vomiting type: unspecified Nausea presence: with nausea Qualified Code(s): R11.2 - Nausea with vomiting, unspecified Is this a current diagnosis for this admission?: Yes Plan: Unidentified etiology. Endorses history of H. pylori. Completed course of antibiotic. Denies any history of IBS. Denies any sick contact. Denies any recreational drug abuse. Admit to medical floor, volume resuscitation, antibiotics, monitor electrolytes and replace as needed. GI consulted. Possible EGD followed by HIDA scan. Follow recommendation. (2) Abdominal pain Qualifiers: Abdominal location: epigastric Qualified Code(s): R10.13 - Epigastric pain Is this a current diagnosis for this admission?: Yes Plan: Plan as per #1.
[2019-07-16] MEDS: MORPHINE SULFATE 10 MG/ML INJ IV PRN (20:06)
[2019-07-16] MEDS: PROMETHAZINE HCL INJ 25 MG/1 ML VIAL IV PRN (21:35)
[2019-07-16] MEDS: HEPARIN SOD (PORCINE) 5,000 UNIT/ML 1 ML VIAL SUBCUT SCH (22:27)
[2019-07-16] MEDS: PANTOPRAZOLE SODIUM 40 MG VIAL IV SCH (22:29)
[2019-07-16] MEDS: METOCLOPRAMIDE HCL 10 MG TABLET PO SCH (22:29)
[2019-07-16] MEDS: DEXTROSE 5%-NORMAL SALINE 1,000 ML IV PRN (22:30)
[2019-07-17] MEDS: MORPHINE SULFATE 10 MG/ML INJ IV PRN ×4 (04:29→21:09)
[2019-07-17] MEDS: HEPARIN SOD (PORCINE) 5,000 UNIT/ML 1 ML VIAL SUBCUT SCH ×3 (06:05→22:17)
[2019-07-17] MEDS: ONDANSETRON HCL INJ/PF 4 MG/2 ML SDV IV PRN ×3 (06:34→17:37)
[2019-07-17] MEDS ORDERED: FLUMAZENIL INJ 0.5 MG/5 ML VIAL ONE (07:49)
[2019-07-17] MEDS ORDERED: NALOXONE HCL INJ/PF 0.4 MG/1 ML SDV ONE (07:49)
[2019-07-17] MEDS ORDERED: DIPHENHYDRAMINE HCL 50 MG/ML VIAL ONE (07:49)
[2019-07-17] MEDS ORDERED: EPINEPHRINE INJ 1 MG/10 ML DISP.SYRIN ONE (07:49)
[2019-07-17] MEDS ORDERED: ONDANSETRON HCL INJ/PF 4 MG/2 ML SDV ONE (07:49)
[2019-07-17] MEDS ORDERED: GLUCAGON,HUMAN RECOMB 1 MG INJ ONE (07:50)
--- NOTE | 2019-07-17 08:10 | PDOC PROGRESS REPORT ---
Subjective Progress Note for:: 07/17/19 Subjective:: 07/17/2019-continue nausea and vomiting. Reason For Visit: INTRACTABLE NAUSEA AND VOMITING Physical Exam Vital Signs: Temp Pulse Resp BP Pulse Ox 98.9 F 54 L 18 104/63 100 07/17/19 02:26 07/17/19 02:26 07/17/19 02:26 07/17/19 02:26 07/17/19 02:26 Intake & Output 07/16/19 07/17/19 07/18/19 06:59 06:59 06:59 Intake Total 1000 Balance 1000 Weight 67.8 kg General appearance: PRESENT: no acute distress, well-developed, well-nourished Head exam: PRESENT: atraumatic, normocephalic Eye exam: PRESENT: conjunctiva pink, EOMI, PERRLA. ABSENT: scleral icterus Ear exam: PRESENT: normal external ear exam Mouth exam: PRESENT: moist, tongue midline Neck exam: ABSENT: carotid bruit, JVD, lymphadenopathy, thyromegaly Respiratory exam: PRESENT: clear to auscultation sascha. ABSENT: rales, rhonchi, wheezes Cardiovascular exam: PRESENT: RRR. ABSENT: diastolic murmur, rubs, systolic murmur Pulses: PRESENT: normal dorsalis pedis pul Vascular exam: PRESENT: normal capillary refill GI/Abdominal exam: PRESENT: normal bowel sounds, soft. ABSENT: distended, guard ing, mass, organolmegaly, rebound, tenderness Rectal exam: PRESENT: deferred Extremities exam: PRESENT: full ROM. ABSENT: calf tenderness, clubbing, pedal edema Neurological exam: PRESENT: alert, awake, oriented to person, oriented to place, oriented to time, oriented to situation, CN II-XII grossly intact. ABSENT: motor sensory deficit Psychiatric exam: PRESENT: appropriate affect, normal mood. ABSENT: homicidal ideation, suicidal ideation Skin exam: PRESENT: dry, intact, warm. ABSENT: cyanosis, rash Results Laboratory Results: 07/16/19 15:00 07/16/19 15:00 07/16/19 07/16/19 07/16/19 15:00 15:00 15:00 WBC 10.6 H RBC 4.70 Hgb 13.6 Hct 40.1 MCV 85 MCH 28.8 MCHC 33.8 RDW 12.9 Plt Count 251 Seg Neutrophils % 57.9 Sodium 141.5 Potassium 4.1 Chloride 109 H Carbon Dioxide 21 L Anion Gap 12 BUN 8 Creatinine 0.67 Est GFR ( Amer) > 60 Glucose 89 Calcium 9.6 Total Bilirubin 0.5 AST 21 Alkaline Phosphatase 55 Total Protein 7.4 Albumin 4.1 Lipase Serum HCG, Qual NEGATIVE Urine Color Urine Appearance Urine pH Ur Specific [place] Urine Protein Urine Glucose (UA) Urine Ketones Urine Blood Urine Nitrite Ur Leukocyte Esterase Urine WBC (Auto) Urine RBC (Auto) 07/16/19 07/16/19 15:00 16:39 WBC RBC Hgb Hct MCV MCH MCHC RDW Plt Count Seg Neutrophils % Sodium Potassium Chloride Carbon Dioxide Anion Gap BUN Creatinine Est GFR ( Amer) Glucose Calcium Total Bilirubin AST Alkaline Phosphatase Total Protein Albumin Lipase 83.6 Serum HCG, Qual Urine Color YELLOW Urine Appearance CLOUDY Urine pH 7.0 Ur Specific [place] 1.014 Urine Protein 30 H Urine Glucose (UA) NEGATIVE Urine Ketones NEGATIVE Urine Blood LARGE H Urine Nitrite NEGATIVE Ur Leukocyte Esterase SMALL H Urine WBC (Auto) 14 Urine RBC (Auto) >182 Impressions: Abdomen/Pelvis CT 07/16/19 15:36 IMPRESSION: NO ACUTE FINDINGS. Assessment and Plan - Diagnosis (1) Intractable vomiting Qualifiers: Vomiting type: unspecified Nausea presence: with nausea Qualified Code(s): R11.2 - Nausea with vomiting, unspecified Is this a current diagnosis for this admission?: Yes Plan: Unidentified etiology. Endorses history of H. pylori. Completed course of antibiotic. Denies any history of IBS. Denies any sick contact. Denies any recreational drug abuse. Admit to medical floor, volume resuscitation, antibiotics, monitor electrolytes and replace as needed. GI consulted. Possible EGD followed by HIDA scan. Follow recommendation. 07/17/2019-remains nauseous no vomiting since yesterday. Will have EGD this a.m. per gastroenterology followed by HIDA scan and possible gastric emptying study to determine etiology. Will await GI recommendations. (2) Abdominal pain Qualifiers: Abdominal location: epigastric Qualified Code(s): R10.13 - Epigastric pain Is this a current diagnosis for this admission?: Yes Plan: Plan as per #1. 07/17/2019-see #1
[2019-07-17] MEDS: MIDAZOLAM 2 MG/2 ML INJ ONE ×3 (08:40→08:45)
[2019-07-17] MEDS: FENTANYL CITRATE INJ/PF 100 MCG/2 ML AMPUL ONE ×2 (08:42→08:46)
--- NOTE | 2019-07-17 08:57 | Operative Report ---
Operative Report DATE OF SURGERY: 07/17/19 Operative Report: The risks benefits and alternatives of the procedure explained to the patient in detail and informed consent is obtained.A GIF Olympus video scope was inserted into the patient's mouth and hypopharynx, the esophagus is identified intubated and insufflated, the scope was then advanced through the esophagus stomach and duodenum, retroflexion maneuver is done, the esophagus stomach and first and second portions of the duodenum examined. PREOPERATIVE DIAGNOSIS: Nausea vomiting POSTOPERATIVE DIAGNOSIS: Gastritis status post biopsy no evidence of gastric outlet obstruction, no ulcers OPERATION: EGD with biopsy SURGEON: KATE WELCH ANESTHESIA: Moderate Sedation - 4 mg of Versed, 100 mcg of fentanyl. Conscious sedation monitoring time 30 minutes. TISSUE REMOVED OR ALTERED: As noted above. COMPLICATIONS: None. ESTIMATED BLOOD LOSS: None. INTRAOPERATIVE FINDINGS: As noted above. PROCEDURE: Patient tolerated the procedure well. No immediate postprocedure complications are noted. Patient is sent back to her room in good condition. Resume regular diet as tolerated Resume preprocedure activity level Weight on biopsies Recommend gastric emptying study
[2019-07-17] MEDS: METOCLOPRAMIDE HCL 10 MG TABLET PO SCH ×4 (10:20→22:14)
[2019-07-17] MEDS: PANTOPRAZOLE SODIUM 40 MG VIAL IV SCH ×2 (10:35→22:16)
[2019-07-17] MEDS: DEXTROSE 5%-NORMAL SALINE 1,000 ML IV PRN (14:59)
[2019-07-17] MEDS: PROMETHAZINE HCL INJ 25 MG/1 ML VIAL IV PRN (21:10)
[2019-07-18] MEDS: MORPHINE SULFATE 10 MG/ML INJ IV PRN ×6 (04:31→22:45)
[2019-07-18] MEDS: ONDANSETRON HCL INJ/PF 4 MG/2 ML SDV IV PRN ×3 (04:31→17:09)
[2019-07-18] MEDS ORDERED: MORPHINE SULFATE 10 MG/ML INJ IV ONE (05:03)
[2019-07-18] MEDS ORDERED: MORPHINE SULFATE 10 MG/ML INJ IV PRN ×3 (05:03→05:05)
[2019-07-18] MEDS: HEPARIN SOD (PORCINE) 5,000 UNIT/ML 1 ML VIAL SUBCUT SCH ×3 (05:15→22:48)
[2019-07-18] MEDS: DEXTROSE 5%-NORMAL SALINE 1,000 ML IV PRN (05:38)
--- NOTE | 2019-07-18 08:05 | PDOC PROGRESS REPORT ---
Subjective Progress Note for:: 07/18/19 Subjective:: 07/17/2019-continue nausea and vomiting. 07/18/2019-abdominal pain Reason For Visit: INTRACTABLE NAUSEA AND VOMITING Physical Exam Vital Signs: Temp Pulse Resp BP Pulse Ox 98.8 F 51 L 17 110/65 100 07/18/19 04:15 07/18/19 04:15 07/18/19 04:15 07/18/19 04:15 07/18/19 04:15 Intake & Output 07/17/19 07/18/19 07/19/19 06:59 06:59 06:59 Intake Total 1000 2830 Output Total 300 Balance 1000 2530 Weight 67.8 kg 69.6 kg General appearance: PRESENT: no acute distress, well-developed, well-nourished Head exam: PRESENT: atraumatic, normocephalic Eye exam: PRESENT: conjunctiva pink, EOMI, PERRLA. ABSENT: scleral icterus Ear exam: PRESENT: normal external ear exam Mouth exam: PRESENT: moist, tongue midline Neck exam: ABSENT: carotid bruit, JVD, lymphadenopathy, thyromegaly Respiratory exam: PRESENT: clear to auscultation sascha. ABSENT: rales, rhonchi, wheezes Cardiovascular exam: PRESENT: RRR. ABSENT: diastolic murmur, rubs, systolic murmur Pulses: PRESENT: normal dorsalis pedis pul Vascular exam: PRESENT: normal capillary refill GI/Abdominal exam: PRESENT: normal bowel sounds, soft. ABSENT: distended, guarding, mass, organolmegaly, rebound, tenderness Rectal exam: PRESENT: deferred Extremities exam: PRESENT: full ROM. ABSENT: calf tenderness, clubbing, pedal edema Neurological exam: PRESENT: alert, awake, oriented to person, oriented to place, oriented to time, oriented to situation, CN II-XII grossly intact. ABSENT: motor sensory deficit Psychiatric exam: PRESENT: appropriate affect, normal mood. ABSENT: homicidal ideation, suicidal ideation Skin exam: PRESENT: dry, intact, warm. ABSENT: cyanosis, rash Results Laboratory Results: 07/16/19 15:00 07/16/19 15:00 Impressions: Abdomen/Pelvis CT 07/16/19 15:36 IMPRESSION: NO ACUTE FINDINGS. Assessment and Plan - Diagnosis (1) Intractable vomiting Qualifiers: Vomiting type: unspecified Nausea presence: with nausea Qualified Code(s): R11.2 - Nausea with vomiting, unspecified Is this a current diagnosis for this admission?: Yes Plan: Unidentified etiology. Endorses history of H. pylori. Completed course of antibiotic. Denies any history of IBS. Denies any sick contact. Denies any recreational drug abuse. Admit to medical floor, volume resuscitation, antibiotics, monitor electrolytes and replace as needed. GI consulted. Possible EGD followed by HIDA scan. Follow recommendation. 07/17/2019-remains nauseous no vomiting since yesterday. Will have EGD this a.m. per gastroenterology followed by HIDA scan and possible gastric emptying study to determine etiology. Will await GI recommendations. 07/18/2019-EGD shows gastritis. Recommends gastric imaging study. Continue PRN antiemetics. (2) Abdominal pain Qualifiers: Abdominal location: epigastric Qualified Code(s): R10.13 - Epigastric pain Is this a current diagnosis for this admission?: Yes Plan: Plan as per #1. 07/17/2019-see #1 -continue PRN pain medications. We will add Cipro and Flagyl IV as I do not know the etiology of this abdominal pain at this time. (3) UTI (urinary tract infection) Is this a current diagnosis for this admission?: Yes Plan: 07/18/2019-I have added Cipro 400 mg IV twice daily for abdominal pain of unknown etiology. This should cover UTI as well - Time Time Spent with patient: 15-24 minutes
[2019-07-18] MEDS: METOCLOPRAMIDE HCL 10 MG TABLET PO SCH ×4 (08:54→22:48)
[2019-07-18] MEDS: CIPROFLOXACIN 400 MG/D5W RTU 400 MG/200 ML RTUPB IV SCH ×2 (11:28→22:48)
[2019-07-18] MEDS: PANTOPRAZOLE SODIUM 40 MG VIAL IV SCH ×2 (11:29→22:48)
--- NOTE | 2019-07-18 13:24 | PDOC PROGRESS REPORT ---
Subjective Progress Note for:: 07/18/19 Subjective:: biopsies are negative for H.pylori continue work up for nausea and vomiting would recommend HIDA scan if that is negative, gastric emptying scan to rule out gastroparesis Reason For Visit: INTRACTABLE NAUSEA AND VOMITING Physical Exam Vital Signs: Temp Pulse Resp BP Pulse Ox 98.6 F 53 L 14 101/45 L 99 07/18/19 12:00 07/18/19 12:00 07/18/19 12:00 07/18/19 12:00 07/18/19 12:00 Intake & Output 07/17/19 07/18/19 07/19/19 06:59 06:59 06:59 Intake Total 1000 2830 Output Total 300 Balance 1000 2530 Weight 67.8 kg 69.6 kg General appearance: PRESENT: no acute distress, thin Head exam: PRESENT: atraumatic, normocephalic Eye exam: PRESENT: EOMI, PERRLA. ABSENT: nystagmus, periorbital swelling, scleral icterus Mouth exam: PRESENT: moist, neck supple Throat exam: ABSENT: tonsillar exudate, tonsillogmegaly Neck exam: ABSENT: meningismus, tenderness, thyromegaly Cardiovascular exam: PRESENT: RRR, +S1, +S2 GI/Abdominal exam: PRESENT: soft. ABSENT: rebound, rigid, tenderness Extremities exam: ABSENT: joint swelling, pedal edema Musculoskeletal exam: PRESENT: full ROM Neurological exam: PRESENT: oriented to time, oriented to situation, CN II-XII grossly intact Psychiatric exam: PRESENT: flat affect Focused psych exam: ABSENT: restlessness Skin exam: PRESENT: normal color. ABSENT: mottled, pallor, urticaria, vesicles Results Laboratory Results: 07/16/19 15:00 07/16/19 15:00 Impressions: Abdomen/Pelvis CT 07/16/19 15:36 IMPRESSION: NO ACUTE FINDINGS. Assessment & Plan - Diagnosis (1) Intractable vomiting Qualifiers: Vomiting type: unspecified Nausea presence: with nausea Qualified Code(s): R11.2 - Nausea with vomiting, unspecified Is this a current diagnosis for this admission?: Yes Plan: EGD does not show any gastric outlet obstruction biopsies are negative continue work up as detailed above please call if surgery if has biliary dyskinesia - Time Time Spent with patient: 15-24 minutes
[2019-07-18] MEDS: METRONIDAZOLE 500 MG/NS RTU 500 MG/100 ML RTUPB IV SCH ×2 (13:30→17:09)
[2019-07-19] MEDS: DEXTROSE 5%-NORMAL SALINE 1,000 ML IV PRN (00:20)
[2019-07-19] MEDS: METRONIDAZOLE 500 MG/NS RTU 500 MG/100 ML RTUPB IV SCH ×4 (00:21→17:33)
[2019-07-19] MEDS: MORPHINE SULFATE 10 MG/ML INJ IV PRN ×7 (01:08→23:02)
[2019-07-19] MEDS: HEPARIN SOD (PORCINE) 5,000 UNIT/ML 1 ML VIAL SUBCUT SCH ×3 (05:19→22:53)
[2019-07-19 05:38] LABS: HEMATOCRIT 33.6 % (36.0-47.0); MEAN CORPUSCULAR HEMOGLOBIN 28.7 pg (27.0-33.4); MEAN CORPUSCULAR HGB CONC 33.6 g/dL (32.0-36.0); MEAN CORPUSCULAR VOLUME 86 fl (80-97); PLATELET COUNT 174 10^3/uL (150-450); RED BLOOD COUNT 3.94 10^6/uL (3.72-5.28); RED CELL DISTRIBUTION WIDTH 12.9 % (11.5-14.0); WHITE BLOOD COUNT 6.1 10^3/uL (4.0-10.5)
[2019-07-19 05:41] LABS: HEMOGLOBIN 11.3 g/dL (12.0-15.5)
[2019-07-19 05:53] LABS: BLOOD UREA NITROGEN 4 mg/dL (7-20); CHLORIDE 109 mmol/L (98-107); GLUCOSE 88 mg/dL (75-110)
[2019-07-19 06:11] LABS: CARBON DIOXIDE 24 mmol/L (22-30); POTASSIUM 3.6 mmol/L (3.6-5.0)
[2019-07-19 06:17] LABS: ANION GAP 5 (5-19)
[2019-07-19] MEDS ORDERED: KETOROLAC TROMETHAMINE INJ/PF 30 MG/1 ML SDV ONE (07:56)
--- NOTE | 2019-07-19 08:07 | PDOC PROGRESS REPORT ---
Subjective Progress Note for:: 07/19/19 Subjective:: 07/17/2019-continue nausea and vomiting. 07/18/2019-abdominal pain 07/19/2019-continue abdominal pain mostly cramping in lower abdomen Reason For Visit: INTRACTABLE NAUSEA AND VOMITING Physical Exam Vital Signs: Temp Pulse Resp BP Pulse Ox 98.2 F 87 16 118/58 L 98 07/19/19 03:42 07/19/19 03:42 07/19/19 03:42 07/19/19 03:42 07/19/19 03:42 Intake & Output 07/18/19 07/19/19 07/20/19 06:59 06:59 06:59 Intake Total 2830 1950 Output Total 300 1200 Balance 2530 750 Weight 69.6 kg 69.6 kg General appearance: PRESENT: no acute distress, well-developed, well-nourished Head exam: PRESENT: atraumatic, normocephalic Eye exam: PRESENT: conjunctiva pink, EOMI, PERRLA. ABSENT: scleral icterus Ear exam: PRESENT: normal external ear exam Mouth exam: PRESENT: moist, tongue midline Neck exam: ABSENT: carotid bruit, JVD, lymphadenopathy, thyromegaly Respiratory exam: PRESENT: clear to auscultation sascha. ABSENT: rales, rhonchi, wheezes Cardiovascular exam: PRESENT: RRR. ABSENT: diastolic murmur, rubs, systolic murmur Pulses: PRESENT: normal dorsalis pedis pul Vascular exam: PRESENT: normal capillary refill GI/Abdominal exam: PRESENT: normal bowel sounds, soft, tenderness. ABSENT: distended, guarding, mass, organolmegaly, rebound Rectal exam: PRESENT: deferred Extremities exam: PRESENT: full ROM. ABSENT: calf tenderness, clubbing, pedal edema Neurological exam: PRESENT: alert, awake, oriented to person, oriented to place, oriented to time, oriented to situation, CN II-XII grossly intact. ABSENT: motor sensory deficit Psychiatric exam: PRESENT: appropriate affect, normal mood. ABSENT: homicidal ideation, suicidal ideation Skin exam: PRESENT: dry, intact, warm. ABSENT: cyanosis, rash Results Laboratory Results: 07/19/19 05:19 07/19/19 05:19 07/19/19 07/19/19 05:19 05:19 WBC 6.1 RBC 3.94 Hgb 11.3 L D Hct 33.6 L MCV 86 MCH 28.7 MCHC 33.6 RDW 12.9 Plt Count 174 Sodium 137.6 Potassium 3.6 Chloride 109 H Carbon Dioxide 24 Anion Gap 5 BUN 4 L Creatinine 0.76 Est GFR ( Amer) > 60 Glucose 88 Calcium 8.0 L Impressions: Abdomen/Pelvis CT 07/16/19 15:36 IMPRESSION: NO ACUTE FINDINGS. Assessment and Plan - Diagnosis (1) Intractable vomiting Qualifiers: Vomiting type: unspecified Nausea presence: with nausea Qualified Code(s): R11.2 - Nausea with vomiting, unspecified Is this a current diagnosis for this admission?: Yes Plan: Unidentified etiology. Endorses history of H. pylori. Completed course of antibiotic. Denies any history of IBS. Denies any sick contact. Denies any recreational drug abuse. Admit to medical floor, volume resuscitation, antibiotics, monitor electrolytes and replace as needed. GI consulted. Possible EGD followed by HIDA scan. Follow recommendation. 07/17/2019-remains nauseous no vomiting since yesterday. Will have EGD this a.m. per gastroenterology followed by HIDA scan and possible gastric emptying study to determine etiology. Will await GI recommendations. 07/18/2019-EGD shows gastritis. Recommends gastric imaging study. Continue PRN antiemetics. 07/19/2019-EGD biopsy negative for H. pylori. Gastric emptying study this a.m. HIDA scan. Continue PRN antiemetics. (2) Abdominal pain Qualifiers: Abdominal location: epigastric Qualified Code(s): R10.13 - Epigastric pain Is this a current diagnosis for this admission?: Yes Plan: Plan as per #1. 07/17/2019-see #1 -continue PRN pain medications. We will add Cipro and Flagyl IV as I do not know the etiology of this abdominal pain at this time. 07/19/2019-see #1 (3) UTI (urinary tract infection) Is this a current diagnosis for this admission?: Yes Plan: 07/18/2019-I have added Cipro 400 mg IV twice daily for abdominal pain of unknown etiology. This should cover UTI as well 07/19/2019-continue Cipro await cultures (4) Anemia Is this a current diagnosis for this admission?: Yes Plan: 07/19/2019-most likely dilutional. Repeat CBC in a.m. - Time Time Spent with patient: 15-24 minutes
[2019-07-19] MEDS: PANTOPRAZOLE SODIUM 40 MG VIAL IV SCH ×2 (11:13→22:47)
[2019-07-19] MEDS: CIPROFLOXACIN 400 MG/D5W RTU 400 MG/200 ML RTUPB IV SCH ×2 (11:14→22:42)
[2019-07-19] MEDS: METOCLOPRAMIDE HCL 10 MG TABLET PO SCH ×3 (12:53→22:46)
--- NOTE | 2019-07-19 13:26 | RADIOLOGY REPORT (SQ) ---
EXAM DESCRIPTION: NM GASTRIC EMPTYING STUDY COMPLETED DATE/TIME: 07/19/2019 1:09 pm REASON FOR STUDY: abdominal pain N/V COMPARISON: None. RADIONUCLIDE AND DOSE: 2.2 millicuries Tc-99m Sulfur Colloid. A wide variety of solid foods have been used. The route of agent administration: Oral. TECHNIQUE: 1 minute serial static imaging performed at time of meal, 1 hour, 2 hours, 3 hours, and 4 hours as needed. Once stomach reaches 90% emptying, the test is complete. Image intensity values pl otted with respect to time with linear regression algorithm. LIMITATIONS: None. FINDINGS: Patient was observed for 2 hours. Immediate post meal serves as baseline. Gastric emptying at 30 minutes was 14%. Gastric emptying at 60 minutes was 27% Gastric emptying at 90 minutes was 37%. Gastric emptying at 240 minutes was 71%. Normal values: 60 minutes: 30-90% retained. If less than 30%, abnormally rapid emptying. If greater than 90%, delaye d gastric emptying. 120 minutes: <60% retained. If greater than 60%, delayed gastric emptying. 240 minutes: <10% retained. If greater than 10%, delayed gastric emptying. IMPRESSION: Decreased gastric emptying. TECHNICAL DOCUMENTATION: JOB ID: [id number] [employer] SITE- All Rights Reserved rev-02/02 Reading location - IP/workstation name: [email or web address]
[2019-07-19] MEDS: ONDANSETRON HCL INJ/PF 4 MG/2 ML SDV IV PRN ×2 (15:27→20:06)
[2019-07-20] MEDS: METRONIDAZOLE 500 MG/NS RTU 500 MG/100 ML RTUPB IV SCH ×2 (00:48→05:51)
[2019-07-20] MEDS: MORPHINE SULFATE 10 MG/ML INJ IV PRN (03:11)
[2019-07-20] MEDS: ONDANSETRON HCL INJ/PF 4 MG/2 ML SDV IV PRN (04:13)
[2019-07-20 04:59] VITALS: BP 119/74
[2019-07-20] MEDS: DEXTROSE 5%-NORMAL SALINE 1,000 ML IV PRN (05:28)
[2019-07-20] MEDS: HEPARIN SOD (PORCINE) 5,000 UNIT/ML 1 ML VIAL SUBCUT SCH (06:06)
[2019-07-20 07:29] LABS: HEMATOCRIT 33.2 % (36.0-47.0); HEMOGLOBIN 11.1 g/dL (12.0-15.5); MEAN CORPUSCULAR HEMOGLOBIN 28.6 pg (27.0-33.4); MEAN CORPUSCULAR HGB CONC 33.3 g/dL (32.0-36.0); MEAN CORPUSCULAR VOLUME 86 fl (80-97); PLATELET COUNT 180 10^3/uL (150-450); RED BLOOD COUNT 3.86 10^6/uL (3.72-5.28); RED CELL DISTRIBUTION WIDTH 13.1 % (11.5-14.0); WHITE BLOOD COUNT 5.9 10^3/uL (4.0-10.5)
[2019-07-20] MEDS ORDERED: IBUPROFEN 800 MG TABLET PO PRN (07:39)
[2019-07-20] MEDS: METOCLOPRAMIDE HCL 10 MG TABLET PO SCH (08:20)
--- NOTE | 2019-07-20 08:23 | PDOC DISCHARGE SUMMARY ---
Impression - Admit/DC Date/PCP Admission Date/Primary Care Provider: 07/16/19 19:55 [facility] Discharge Date: 07/20/19 - Discharge Diagnosis (1) Intractable vomiting Is this a current diagnosis for this admission?: Yes (2) Abdominal pain Is this a current diagnosis for this admission?: Yes (3) UTI (urinary tract infection) Is this a current diagnosis for this admission?: Yes (4) Anemia Is this a current diagnosis for this admission?: Yes - Additional Information Resuscitation Status: Full Code Discharge Activity: Activity As Tolerated Referrals: [facility] [Primary [facility]] - Follow up as needed Home Medications: Norethindrone-Ethinyl Estrad [Pirmella] 1 each PO DAILY 07/17/19 History of Present Illiness History of Present Illness: ANGELY NIXON is a 33 year old female who presented to the ER with epigastric abdominal pain nausea, vomiting, diarrhea for last 2 weeks. Hospital Course Hospital Course: Patient presents to the ER with complaints of epigastric pain, nausea, vomiting, diarrhea for 2 weeks. Patient states abdominal pain was epigastric intermitte nt and colicky in nature. Moderate in intensity and radiate to her lower back. She had no alleviating or aggravating factors at that time. Patient was admitted to medical surgical floor placed on IV fluids IV antibiotics underwent endoscopy which was negative for H. pylori and undertook a gastric imaging study which showed delayed gastroparesis. Patient complains of continued lower abdominal pain which I suspect is mostly UNIFORMER related patient follow-up with her UNIFORMER in 1 week. Patient also follow-up with her primary care practitioner in 1 week. I will prescribe Zofran and Reglan to help with her nausea vomiting and her delayed gastroparesis. Patient return to ER with any further symptoms or complaints. Physical Exam Vital Signs: Temp Pulse Resp BP Pulse Ox 98.8 F 60 16 119/74 100 07/20/19 04:00 07/20/19 04:00 07/20/19 04:00 07/20/19 04:00 07/20/19 04:00 Intake & Output 07/19/19 07/20/19 07/21/19 06:59 06:59 05:59 Intake Total 2150 1800 Output Total 1200 2700 Balance 950 -900 Weight 69.6 kg 71 kg General appearance: PRESENT: no acute distress, well-developed, well-nourished Head exam: PRESENT: atraumatic, normocephalic Eye exam: PRESENT: conjunctiva pink, EOMI, PERRLA. ABSENT: scleral icterus Ear exam: PRESENT: normal external ear exam Mouth exam: PRESENT: moist, tongue midline Neck exam: ABSENT: carotid bruit, JVD, lymphadenopathy, thyromegaly Respiratory exam: PRESENT: clear to auscultation sascha. ABSENT: rales, rhonchi, wheezes Cardiovascular exam: PRESENT: RRR. ABSENT: diastolic murmur, rubs, systolic murmur Pulses: PRESENT: normal dorsalis pedis pul Vascular exam: PRESENT: normal capillary refill GI/Abdominal exam: PRESENT: normal bowel sounds, soft. ABSENT: distended, guarding, mass, organolmegaly, rebound, tenderness Rectal exam: PRESENT: deferred Extremities exam: PRESENT: full ROM. ABSENT: calf tenderness, clubbing, pedal edema Neurological exam: PRESENT: alert, awake, oriented to person, oriented to place, oriented to time, oriented to situation, CN II-XII grossly intact. ABSENT: motor sensory deficit Psychiatric exam: PRESENT: appropriate affect, normal mood. ABSENT: homicidal ideation, suicidal ideation Skin exam: PRESENT: dry, intact, warm. ABSENT: cyanosis, rash Results Laboratory Results: WBC 5.9 10^3/uL (4.0-10.5) 07/20/19 06:23 RBC 3.86 10^6/uL (3.72-5.28) 07/20/19 06:23 Hgb 11.1 g/dL (12.0-15.5) L 07/20/19 06:23 Hct 33.2 % (36.0-47.0) L 07/20/19 06:23 MCV 86 fl (80-97) 07/20/19 06:23 MCH 28.6 pg (27.0-33.4) 07/20/19 06:23 MCHC 33.3 g/dL (32.0-36.0) 07/20/19 06:23 RDW 13.1 % (11.5-14.0) 07/20/19 06:23 Plt Count 180 10^3/uL (150-450) 07/20/19 06:23 Lymph % (Auto) 33.2 % (13-45) 07/16/19 15:00 [place] % (Auto) 3.8 % (3-13) 07/16/19 15:00 Eos % (Auto) 4.3 % (0-6) 07/16/19 15:00 Baso % (Auto) 0.8 % (0-2) 07/16/19 15:00 Absolute Neuts (auto) 6.1 10^3/uL (1.7-8.2) 07/16/19 15:00 Absolute Lymphs (auto) 3.5 10^3/uL (0.5-4.7) 07/16/19 15:00 Absolute Monos (auto) 0.4 10^3/uL (0.1-1.4) 07/16/19 15:00 Absolute Eos (auto) 0.5 10^3/uL (0.0-0.6) 07/16/19 15:00 Absolute Basos (auto) 0.1 10^3/uL (0.0-0.2) 07/16/19 15:00 Seg Neutrophils % 57.9 % (42-78) 07/16/19 15:00 Sodium 137.6 mmol/L (137-145) 07/19/19 05:19 Potassium 3.6 mmol/L (3.6-5.0) 07/19/19 05:19 Chloride 109 mmol/L (98-107) H 07/19/19 05:19 Carbon Dioxide 24 mmol/L (22-30) 07/19/19 05:19 Anion Gap 5 (5-19) 07/19/19 05:19 BUN 4 mg/dL (7-20) L 07/19/19 05:19 Creatinine 0.76 mg/dL (0.52-1.25) 07/19/19 05:19 Est GFR ( Amer) > 60 (>60) 07/19/19 05:19 Est GFR (MDRD) Non-Af > 60 (>60) 07/19/19 05:19 Glucose 88 mg/dL (75-110) 07/19/19 05:19 POC Glucose 87 mg/dL (70-110) 07/17/19 04:50 Hemoglobin A1c % 6.0 % (4.7-6.0) 07/16/19 15:00 Calcium 8.0 mg/dL (8.4-10.2) L 07/19/19 05:19 Total Bilirubin 0.5 mg/dL (0.2-1.3) 07/16/19 15:00 Direct Bilirubin 0.1 mg/dL (0.0-0.4) 07/16/19 15:00 Neonat Total Bilirubin Not Reportable 07/16/19 15:00 Neonat Direct Bilirubin Not Reportable 07/16/19 15:00 Neonat Indirect Bili Not Reportable 07/16/19 15:00 AST 21 U/L (14-36) 07/16/19 15:00 ALT 13 U/L (<35) 07/16/19 15:00 Alkaline Phosphatase 55 U/L (38-126) 07/16/19 15:00 Total Protein 7.4 g/dL (6.3-8.2) 07/16/19 15:00 Albumin 4.1 g/dL (3.5-5.0) 07/16/19 15:00 Lipase 83.6 U/L (23-300) 07/16/19 15:00 Serum HCG, Qual NEGATIVE (NEGATIVE) 07/16/19 15:00 Urine Color YELLOW 07/16/19 16:39 Urine Appearance CLOUDY 07/16/19 16:39 Urine pH 7.0 (5.0-9.0) 07/16/19 16:39 Ur Specific [place] 1.014 07/16/19 16:39 Urine Protein 30 mg/dL (NEGATIVE) H 07/16/19 16:39 Urine Glucose (UA) NEGATIVE mg/dL (NEGATIVE) 07/16/19 16:39 Urine Ketones NEGATIVE mg/dL (NEGATIVE) 07/16/19 16:39 Urine Blood LARGE (NEGATIVE) H 07/16/19 16:39 Urine Nitrite NEGATIVE (NEGATIVE) 07/16/19 16:39 Urine Bilirubin NEGATIVE (NEGATIVE) 07/16/19 16:39 Urine Urobilinogen NEGATIVE mg/dL (<2.0) 07/16/19 16:39 Ur Leukocyte Esterase SMALL (NEGATIVE) H 07/16/19 16:39 Urine WBC (Auto) 14 /HPF 07/16/19 16:39 Urine RBC (Auto) >182 /HPF 07/16/19 16:39 Urine Bacteria (Auto) TRACE /HPF 07/16/19 16:39 Squamous Epi Cells Auto 39 /HPF 07/16/19 16:39 Urine Mucus (Auto) OCC /LPF 07/16/19 16:39 Urine Ascorbic Acid NEGATIVE (NEGATIVE) 07/16/19 16:39 POC Stool Occult Blood POSITIVE (NEGATIVE) 07/16/19 15:06 Urine Opiates Screen UNCONFIRMED POSITIVE 07/16/19 16:39 Urine Methadone Screen NEGATIVE 07/16/19 16:39 Ur Barbiturates Screen NEGATIVE 07/16/19 16:39 Ur Phencyclidine Scrn NEGATIVE 07/16/19 16:39 Ur Amphetamines Screen NEGATIVE 07/16/19 16:39 U Benzodiazepines Scrn NEGATIVE 07/16/19 16:39 Urine Cocaine Screen NEGATIVE 07/16/19 16:39 U Marijuana (THC) Screen UNCONFIRMED POSITIVE 07/16/19 16:39 Impressions: Abdomen/Pelvis CT 07/16/19 15:36 IMPRESSION: NO ACUTE FINDINGS. Gastric Emptying Nuclear Medicine 07/19/19 00:00 IMPRESSION: Decreased gastric emptying. Plan Time Spent: Greater than 30 Minutes Stroke Is this a Stroke Patient?: No Acute Heart Failure - Is this a Heart Failure Patient?: No
== END 2019-07-20 09:19 | disposition home or self-care (01) ==
LOC: ER 14:14 → EH 19:55 → 2N 07-17 05:07
PROVIDERS: ADMIT Internal Medicine; ATTEND Internal Medicine
PROC: 0DB68ZX Excision of Stomach, Via Natural or Artificial Opening Endoscopic, Diagnostic (ICD-10-PCS; principal; 2019-07-17 08:30)
DX: K29.50 Unspecified chronic gastritis without bleeding (principal); R10.13 Epigastric pain; N39.0 Urinary tract infection, site not specified; E11.43 Type 2 diabetes mellitus with diabetic autonomic (poly)neuropathy; D64.9 Anemia, unspecified; R19.7 Diarrhea, unspecified; R53.81 Other malaise; R53.1 Weakness; Z87.19 Personal history of other diseases of the digestive system
CPT/HCPCS: 96376; 99284; 96361; 96374; 96375; 43239; 36415 ×3; 82962; 83690; 84703; 85025; 85027 ×2; 80048; 80053; 81001; 80307; 83036; 88342 ×2; 88305 ×2; 78264; 74176; G0378 ×6; A9541; J2250; J1644 ×5; S0119; J3010; J1885; J3490 ×3; J2270 ×5; C9113 ×4; J2550 ×2; J2405 ×5; J7042 ×5; J7030; J0744 ×2; J0171; J1200; J1610; J2310

== ENCOUNTER 2020-07-06 11:07 | Emergency (ER) | payer OTHER, MEDICAID ==
[2020-07-06] MEDS ORDERED: NORMAL SALINE 1000 ML 1,000 ML IV ONE (12:12)
[2020-07-06 12:32] LABS: ABSOLUTE BASOPHILS # (AUTO) 0.1 10^3/uL (0.0-0.2); ABSOLUTE EOSINOPHILS # (AUTO) 0.4 10^3/uL (0.0-0.6); ABSOLUTE LYMPHOCYTES (AUTO) 2.9 10^3/uL (0.5-4.7); ABSOLUTE MONOCYTES (AUTO) 0.3 10^3/uL (0.1-1.4); ABSOLUTE NEUT (AUTO) 2.6 10^3/uL (1.7-8.2); BASOPHILS % (AUTO) 0.8 % (0-2); EOSINOPHILS % (AUTO) 6.3 % (0-6); HEMATOCRIT 39.4 % (36.0-47.0); HEMOGLOBIN 13.4 g/dL (12.0-15.5); LYMPHOCYTES % (AUTO) 46.5 % (13-45); MEAN CORPUSCULAR HEMOGLOBIN 29.1 pg (27.0-33.4); MEAN CORPUSCULAR VOLUME 86 fl (80-97); MONOCYTES % (AUTO) 4.3 % (3-13); PLATELET COUNT 264 10^3/uL (150-450); RED BLOOD COUNT 4.59 10^6/uL (3.72-5.28); RED CELL DISTRIBUTION WIDTH 13.9 % (11.5-14.0); SEGMENTED NEUTROPHILS % (AUTO) 42.1 % (42-78); TOTAL CELLS COUNTED % (AUTO) 100 %; WHITE BLOOD COUNT 6.3 10^3/uL (4.0-10.5)
--- NOTE | 2020-07-06 12:35 | ER Document Report ---
ED Headache - General Chief Complaint: Headache Stated Complaint: HEADACHE Time Seen by Provider: 07/06/20 11:56 Primary Care Provider: MONE,OSMAN [Primary Care Provider] - Follow up as needed Notes: Patient is a 34-year-old female who presents to the emergency department with a chief complaint of headache. Patient reports she has had a headache on the left side for about 2 weeks. Patient reports she does have some light sensitivity. Patient reports she does not have a history of migraines and that typically 800 mg of ibuprofen will help with her headache. Patient reports prior to developing the headache she did start to have diarrhea. Patient reports having liquid nonbloody stools daily for the past 2 weeks. Patient denies recent antibiotic use or out of country travel. Patient denies sick contacts and states that she has about 4 episodes of stool per day. Patient denies abdominal pain or vomiting. Patient reports that she feels a lot of tightness to the back of her neck that radiates down into the left arm causing numbness. Patient reports the numbness is improved when she applies pressure on her left arm. TRAVEL OUTSIDE OF THE [place] IN LAST 30 DAYS: No - Related Data Allergies/Adverse Reactions: No Known Allergies Allergy (Verified 07/06/20 11:45) Home Medications: prozac, benadryl, sleep aid Past Medical History - General Information source: Patient - Social History Smoking Status: Current Every Day Smoker Frequency of alcohol use: None Drug Abuse: None Lives with: Family Family History: Reviewed & Not Pertinent Patient has homicidal ideation: No - Past Medical History Cardiac Medical History: Reports: None Pulmonary Medical History: Reports: Hx Bronchitis EENT Medical History: Reports: None Neurological Medical History: Reports: None. Denies: Hx Seizures Endocrine Medical History: Reports: Hx Diabetes Mellitus Type 2 Renal/ Medical History: Reports: None. Denies: Hx Peritoneal Dialysis Malignancy Medical History: Reports: None GI Medical History: Reports: None Musculoskeletal Medical History: Reports None Skin Medical History: Reports None Psychiatric Medical History: Reports: Hx Depression Traumatic Medical History: Reports: None Infectious Medical History: Reports: None Surgical Hx: Negative Past Surgical History: Denies: Hx Hysterectomy - Immunizations Immunizations up to date: Yes Review of Systems - Review of Systems Constitutional: No symptoms reported EENT: See HPI Cardiovascular: No symptoms reported Respiratory: No symptoms reported Gastrointestinal: See HPI Genitourinary: No symptoms reported Female Genitourinary: No symptoms reported Musculoskeletal: No symptoms reported Skin: No symptoms reported Hematologic/Lymphatic: No symptoms reported Neurological/Psychological: See HPI Physical Exam - Vital signs Vitals: Temp Pulse Resp BP Pulse Ox 98.2 F 67 17 116/68 100 07/06/20 11:45 07/06/20 11:45 07/06/20 11:45 07/06/20 11:45 07/06/20 11:45 Interpretation: Normal - Notes Notes: GENERAL: Well-appearing, well-nourished and in no acute distress. HEAD: Atraumatic, normocephalic. Patient does have slight tenderness to palpation to the frontal maxillary sinuses. EYES: Pupils equal round and reactive to light, extraocular movements intact, sclera anicteric, conjunctiva are normal. ENT: TMs normal, nares patent, oropharynx clear without exudates. Moist mucous membranes. NECK: Normal range of motion, supple, no nuchal rigidity. There is a palpable small movable lymph node to the left side of her neck. LUNGS: Breath sounds clear to auscultation bilaterally and equal. No wheezes rales or rhonchi. HEART: Regular rate and rhythm without murmurs, rubs or gallops. ABDOMEN: Soft, nontender, normoactive bowel sounds. No guarding, no rebound. No masses appreciated. BACK: No cervical, thoracic, lumbar midline tenderness. No saddle anesthesia, normal distal neurovascular exam. Tenderness noted with palpation to the left upper trapezius muscle. GENITOURINARY: Deferred. EXTREMITIES: Normal range of motion, no pitting or edema. No clubbing or cyanosis. NEUROLOGICAL: Cranial nerves II through XII grossly intact. Normal speech, normal gait. PSYCH: Normal mood, normal affect. SKIN: Warm, Dry, normal turgor, no rashes or lesions noted. Course - Re-evaluation Re-evalutation: 07/06/20 12:34 Will obtain basic labs as well as a head CT. Patient reports this is the worst headache that she has had which is prompted me to order the head CT. Patient is nontoxic-appearing. There is no fever. There is no rash. Patient is able to speak in full complete sentences. 07/06/20 14:[address] of the head was negative. Patient resting comfortably on stretcher and reports that her headache is now a 2 out of 5. We will give her 15 mg of Toradol IV, obtain a urine sample. Plan is to discharge the patient. P.o. challenge. 07/06/20 16:05 Patient was discharged. Patient reports that her headache is completely gone and is 0 out of 5. - Vital Signs Vital signs: Temp Pulse Resp BP Pulse Ox 97.8 F 70 16 112/64 99 07/06/20 16:01 07/06/20 16:01 07/06/20 16:01 07/06/20 16:01 07/06/20 16:01 - Laboratory Result Diagrams: 07/06/20 12:14 07/06/20 12:14 Laboratory results interpreted by me: 07/06/20 07/06/20 12:14 12:14 Lymph % (Auto) 46.5 H Eos % (Auto) 6.3 H Chloride 108 H Patient's blood work does not show significant leukocytosis, anemia or alteration in electrolytes or kidney function. Laboratory 07/06/20 07/06/20 12:14 12:14 WBC 6.3 RBC 4.59 Hgb 13.4 Hct 39.4 MCV 86 MCH 29.1 MCHC 34.0 RDW 13.9 Plt Count 264 Lymph % (Auto) 46.5 H [place] % (Auto) 4.3 Eos % (Auto) 6.3 H Baso % (Auto) 0.8 Absolute Neuts (auto) 2.6 Absolute Lymphs (auto) 2.9 Absolute Monos (auto) 0.3 Absolute Eos (auto) 0.4 Absolute Basos (auto) 0.1 Seg Neutrophils % 42.1 Sodium 139.5 Potassium 4.1 Chloride 108 H Carbon Dioxide 25 Anion Gap 7 BUN 7 Creatinine 0.70 Est GFR ( Amer) > 60 Est GFR (MDRD) Non-Af > 60 Glucose 78 Calcium 9.4 Total Bilirubin 0.5 Direct Bilirubin 0.2 Neonat Total Bilirubin Not Reportable Neonat Direct Bilirubin Not Reportable Neonat Indirect Bili Not Reportable AST 24 ALT 11 Alkaline Phosphatase 51 Total Protein 6.8 Albumin 4.1 - Diagnostic Test Radiology reviewed: Reports reviewed Radiology results interpreted by me: 07/06/20 14:[address] 07/06/20 12:13 IMPRESSION: NORMAL BRAIN CT WITHOUT CONTRAST. EVIDENCE OF ACUTE STROKE: NO. Discharge - Discharge Clinical Impression: Headache Qualifiers: Headache type: unspecified Headache chronicity pattern: unspecified pattern Intractability: not intractable Qualified Code(s): R51.9 - Headache, unspecified Condition: Stable Disposition: HOME, SELF-CARE Additional Instructions: *Today are seen in the emergency department for headache. We did obtain a CAT scan which was negative. We have given you multiple medications as well as IV fluids which did seem to help with your discomfort. I have given you prescription for Fioricet. Take this only as needed for your headache. Make sure you are staying hydrated. HEADACHE: The physician does not feel that the headache you are experiencing has a serious underlying cause. Most headaches are due to emotional stress, with resultant muscle tension (tension headache). Occasionally, headaches are secondary to changes in the blood vessels of the scalp (vascular headache and migraine headache). Sometimes, a headache is the first symptom of another developing illness, such as a viral infection. You have no evidence of stroke, bleeding, meningitis, or other serious cause of your headache. The treatment of headaches varies with the severity and cause of the pain. Not all headaches need pain shots. In fact, there is evidence that using narcotics for headaches may make them worse in the long run. The physician will determine the therapy that's in your best interest. If you develop a fever, if the headache is different from any you've previously experienced, or if the headache progressively worsens, then call your physician at once or go to the emergency room. REGLAN (METOCLOPRAMIDE): Reglan has been prescribed. This medicine affects the stomach and intestines. It can be used to treat nausea and vomiting, to prevent reflux of stomach acid up into the esophagus, or to increase the contractions of the stomach and intestines. It is often prescribed for esophagitis, and for paral ysis of the stomach in diabetics. Reglan can cause either mild restlessness or drowsiness. You should contact the doctor at once if you become extremely restless, anxious, or cannot sleep, or if you develop uncontrollable motions of the lips, tongue, or jaw. Do not take alcohol with this medicine. Do not drive or operate machinery until you have been taking this medicine long enough to know how it affects you. Call the doctor if you develop abdominal pains, lightheadedness, black stool, or blood in the stool or vomitus. USE OF DIPHENHYDRAMINE: Diphenhydramine (Benadryl) is an antihistamine and has been recommended to help treat your headache and to prevent side effects of other medications used to treat headaches. The medication can be repeated four times daily. Age Elixir (12.5 mg/tsp) 25 mg pill adult 1-2 tabs Antihistamines may cause drowsiness, especially with the first dose. Do not operate machinery or drive while under the effects of the medication. Do not combine the medication with alcohol, or with any other medication without talking to your doctor. ANTINAUSEA MEDICATION: You have been given a medication to suppress nausea and vomiting. This type of medication can be given as a shot, pill, or suppository. It will usually last for many hours. Pills and shots usually last six to eight hours, suppositories last about 12 hours. For the typical illness, only one or two doses of the medication may be necessary. Mild lightheadedness may occur. This type of medicine can cause drowsiness. Do not drive or operate dangerous machinery while under its influence. Do not mix with alcohol. See your doctor at once if you have muscle spasms or tightness, or uncontr ollable motions (particularly of the neck, mouth, or jaw). Persistent vomiting or severe lightheadedness should also be evaluated by the physician. TORADOL INJECTION: You have been given an injection of ketorolac tromethamine (Toradol). This is an excellent, safe drug for pain control. It also has potent antiinflammatory action. You should have significant pain relief within about one hour. Toradol is not addicting and is non-sedating. It does not interfere with driving or work. Call or return if you develop itching, hives, shortness of breath, or rash. PAIN MEDICATION INJECTION: You have received an injection of a pain medication. You should experience significant pain relief within 45 minutes. This drug is a narcotic -- it will impair your judgement, slow your reaction time and make you sleepy (as well as relieve your pain). Narcotics also can cause nausea. You should not drive, work with machinery, or perform any task requiring mental alertness until all effects of the medication are gone -- six to eight hours. Do not take any alcohol, or sedatives, and do not take any other medication without checking with your physician. FOLLOW-UP CARE: If you have been referred to a physician for follow-up care, call the physicians office for an appointment as you were instructed or within the next two days. If you experience worsening or a significant change in your symptoms, notify the physician immediately or return to the Emergency Department at any time for re-evaluation. Prescriptions: Butalb/Acetaminophen/Caffeine [Fioricet (50-325-40 mg) Tablet] 1 tab PO Q4H PRN #15 tab PRN Reason: [facility]errals: [facility] [[facility]] - Follow up as needed
[2020-07-06 12:58] LABS: ALBUMIN 4.1 g/dL (3.5-5.0); ALKALINE PHOSPHATASE 51 U/L (38-126); ANION GAP 7 (5-19); ASPARTATE AMINO TRANSFERASE 24 U/L (14-36); BILIRUBIN,DIRECT 0.2 mg/dL (0.0-0.4); BILIRUBIN,TOTAL 0.5 mg/dL (0.2-1.3); BLOOD UREA NITROGEN 7 mg/dL (7-20); CALCIUM 9.4 mg/dL (8.4-10.2); CARBON DIOXIDE 25 mmol/L (22-30); CHLORIDE 108 mmol/L (98-107); GLUCOSE 78 mg/dL (75-110); POTASSIUM 4.1 mmol/L (3.6-5.0); TOTAL PROTEIN 6.8 g/dL (6.3-8.2)
--- NOTE | 2020-07-06 13:23 | RADIOLOGY REPORT (SQ) ---
EXAM DESCRIPTION: CT HEAD WITHOUT IMAGES COMPLETED DATE/TIME: 07/06/2020 1:06 pm REASON FOR STUDY: Headache, left arm numbness x 2 weeks COMPARISON: None. TECHNIQUE: Axial images acquired through the brain without intravenous contrast. Images reviewed wi th bone, brain and subdural windows. Additional sagittal and coronal reconstructions were generated. Images stored on PACS. All CT scanners at this facility use dose modulation, iterative reconstruction, and/or weight based d osing when appropriate to reduce radiation dose to as low as reasonably achievable (ALARA). [facility]: Dose Right [facility]: CareDose [facility]: Dose Right [facility]: Teradose 4D [facility]: [employer] RADIATION DOSE: CT Rad equipment meets quality standard of care and radiation dose reduction techniq ues were employed. CTDIvol: 53.2 mGy. DLP: 1044 mGy-cm. mGy. LIMITATIONS: None. FINDINGS: VENTRICLES: Normal size and contour. CEREBRUM: No masses. No hemorrhage. No midline shift. No evidence for acute infarction. Normal gra y/white matter differentiation. No areas of low density in the white matter. CEREBELLUM: No masses. No hemorrhage. No alteration of density. No evidence for acute infarction. EXTRAAXIAL SPACES: No fluid collections. No masses. ORBITS AND GLOBE: No intra- or extraconal masses. Normal contour of globe without masses. CALVARIUM: No fracture. PARANASAL SINUSES: No fluid or mucosal thickening. SOFT TISSUES: No mass or hematoma. OTHER: No other significant finding. IMPRESSION: NORMAL BRAIN CT WITHOUT CONTRAST. EVIDENCE OF ACUTE STROKE: NO. COMMENT: Quality ID # [id number]: Final reports with documentation of one or more dose reduction techniques (e.g., Automated exposure control, adjustment of the mA and/or kV according to patient size, use of iterative reconstruction technique) TECHNICAL DOCUMENTATION: JOB ID: [id number] 2010 [employer]- All Rights Reserved Reading location - IP/workstation name: [email or web address]
[2020-07-06] MEDS ORDERED: KETOROLAC TROMETHAMINE INJ/PF 30 MG/1 ML SDV IV ONE ×2 (13:24→14:38)
[2020-07-06] MEDS ORDERED: DIPHENHYDRAMINE HCL 50 MG/ML VIAL IV ONE (13:24)
[2020-07-06] MEDS ORDERED: METOCLOPRAMIDE HCL INJ/PF 10 MG/2 ML SDV IV ONE (13:24)
[2020-07-06 16:03] VITALS: BP 112/64
== END 2020-07-06 16:01 | disposition home or self-care (01) ==
LOC: ER 11:07
DX: R51.9 Headache, unspecified (principal); H53.149 Visual discomfort, unspecified; R19.7 Diarrhea, unspecified; R20.0 Anesthesia of skin; E11.9 Type 2 diabetes mellitus without complications; F17.200 Nicotine dependence, unspecified, uncomplicated; Z79.899 Other long term (current) drug therapy
CPT/HCPCS: 96376; 99285; 96361; 96374; 96375; 36415; 85025; 80053; 70450; J1200; J1885; J2765; J7030